=== PATIENT | male | born 1990 | race African-American/Black ===

== ENCOUNTER 2025-02-09 14:07 | Emergency (ER) | payer OTHER, SELFPAY ==
[2025-02-09 14:13] VITALS: BP 140/79; PULSE 58; TEMP 36.8; O2SAT 100; BMI 27.9
--- NOTE | 2025-02-09 14:27 | ED_ITS ---
HPI HPI - General Adult General Chief complaint: Headache Stated complaint: migraine Time Seen by Provider: 02/09/25 14:16 Source: patient Mode of arrival: walk-in Limitations: no limitations History of Present Illness HPI narrative: Patient reports right eye pain and right hemicranial pain starting about an hour ago. He had right eye pain 2 nights ago also. He wears contact lenses and remove the contact for his right eye then. He has a history of what he describes as migraine headaches that are always right hemicranial. Patient denies any infectious symptoms. Related Data Home Medications ?Medication ?Instructions ?Recorded ?Confirmed No Known Home Medications 02/09/25 02/09/25 Allergies Allergy/AdvReac Type Severity Reaction Status Date / Time No Known Drug Allergies Allergy Verified 02/09/25 14:12 Opioid HPI Opioid Management Most Recent Opioid Data: No Data to Display Review of Systems ROS Status of ROS 10 or more systems reviewed and unremark able except as noted in history and below PFSH PFSH Social History Little interest or pleasure in doing things: not at all Feeling down, depressed, or hopeless: not at all Exam Narrative Exam Narrative: Awake and alert, oriented x 3. Mildly photophobic. Pupils are equal and reactive. EOMs are full. There is perilimbal and conjunctival injection in the right eye. There is no facial asymmetry. Neck is supple. Patient moves all extremities actively. HEENT exam is otherwise normal to inspection. Lung sounds are clear to auscultation bilaterally with good air entry. Heart has regular rate and rhythm. Abdomen soft nontender. Patient's right eye was topically anesthetized with tetracaine eyedrops. After the instillation of fluorescein it was examined under the slit-lamp I do not see any uptake of fluorescein over the cornea but he does have more perilimbal flush suggestive of corneal irritation likely from his contact lens which could be part of a trigger for his headache. Constitutional Vital Signs, click to edit/add: Last Vital Signs Temp 98.2 F 02/09/25 14:13 Pulse 58 L 02/09/25 14:13 Resp 18 02/09/25 14:13 BP 140/79 02/09/25 14:13 Pulse Ox 100 02/09/25 14:13 Course Vital Signs Vital signs: Vital Signs Temperature 98.2 F 02/09/25 14:13 Pulse Rate 58 L 02/09/25 14:13 Respiratory Rate 18 02/09/25 14:13 Blood Pressure 140/79 02/09/25 14:13 Pulse Oximetry 100 02/09/25 14:13 Temperature 98.2 F 02/09/25 14:13 Pulse Rate 58 L 02/09/25 14:13 Respiratory Rate 18 02/09/25 14:13 Blood Pressure 140/79 02/09/25 14:13 Pulse Oximetry 100 02/09/25 14:13 Medical Decision Making MDM Narrative Medical decision making narrative: Patient is treated with Toradol 60 mg IM. His eye pain and headache have resolved. He is sent home with TobraDex eyedrops to be used 4 times a day for 2 days in the right eye and is not to wear his contact lens until he has been asymptomatic for at least 2 more days. He may take ibuprofen and Excedrin for headache as needed and is referred to outpatient primary care follow-up. He is to return for worsening symptoms. Discharge Plan Discharge Chief Complaint: Headache Clinical Impression: Corneal irritation of right eye Headache Qualifiers: Headache type: unspecified Headache chronicity pattern: acute headache Intractability: not intractable Qualified Code(s): R51.9 - Headache, unspecified Patient Disposition: Home, Self-Care Time of Disposition Decision: 15:56 Condition: Good Mode of Transportation: Private Vehicle Prescriptions / Home Meds: No Action No Known Home Medications Print Language: Telugu Instructions: Acute Headache (ED) Additional Instructions: Put 1 drop of TobraDex eye solution in your right eye 4 times a day for 2 days. After that if your symptoms are completely gone, do not wear your contacts for another 2 days. Ibuprofen and Excedrin for headache as needed. Return for worsening symptoms. Referrals: Physician,Non-Staff, MD [Primary Care Provider] - 1 week
[2025-02-09] MEDS: KETOROLAC TROMETHAMINE 60 MG/2 ML VIAL IM (14:53)
[2025-02-09] MEDS: FLUORESCEIN SODIUM 1 MG STRIP OP (14:57)
[2025-02-09] MEDS: TETRACAINE HCL 0.5% OP SOL 80 DROP/4 ML BOTTLE OP (14:57)
[2025-02-09] MEDS: TOBRAMYCIN/DEXAMETHASONE 0.3%/0.1% OP SUSP 50 DROP/2.5 ML BOTTLE 2 ML OP (16:00)
== END 2025-02-09 16:12 | disposition home or self-care (01) ==
PROVIDERS: Emergency Provider Emergency Medicine
DX: R51.9 Headache, unspecified (principal); H18.891 Other specified disorders of cornea, right eye
CPT/HCPCS: 96372; 99284; J1885

== ENCOUNTER 2025-02-10 19:38 | Emergency (ER) | payer OTHER, SELFPAY ==
[2025-02-10 19:46] VITALS: BP 152/85; PULSE 90; TEMP 36.7; O2SAT 100; BMI 27.9
--- NOTE | 2025-02-10 21:10 | ED_ITS ---
HPI HPI - General Adult General Chief complaint: Medical Clearance Stated complaint: std testing Time Seen by Provider: 02/10/25 20:03 Source: patient Limitations: no limitations History of Present Illness HPI narrative: 35-year-old male presents to the emergency department with concerns about STI. States he was rumor that one of his sexual partners tested positive for herpes. Patient denies any symptoms. Denies any abdominal pain, penile pain, discharge, rashes. Quality:?as above Severity:?Mild Timing:?as above Context: Normal setting and activity? Modifying factors:?None Associated symptoms: none Related Data Home Medications ?Medication ?Instructions ?Recorded ?Confirmed No Known Home Medications 02/09/25 02/10/25 Allergies Allergy/AdvReac Type Severity Reaction Status Date / Time No Known Drug Allergies Allergy Verified 02/10/25 19:51 Opioid HPI Opioid Management Most Recent Opioid Data: No Data to Display Review of Systems ROS Narrative CONST: Denies fever, chills HENT: Denies congestion, sore throat EYES: Denies eye redness, visual disturbance RESP: Denies cough, shortness of breath CV: Denies chest pain, palpitations GI: Denies abd pain, nausea, vomiting : Denies dysuria, flank pain MS: Denies back pain, myalgias SKIN: Denies color change, rash NEURO: Denies numbness, weakness PSYCHIATRIC: Denies confusion, agitation PFSH PFSH Social History Little interest or pleasure in doing things: not at all Feeling down, depressed, or hopeless: not at all Exam Narrative Exam Narrative: Vital signs reviewed Nurses notes noted CONST: Nontoxic, well appearing, well nourished, in no distress.? No diaphoresis.?? HENT: normocephalic, atraumatic, moist mucous membrane, no abnormalities of the nose noted, hearing normal CV: normal rate, regular rhythm, no murmur RESP: normal effort, speaking in complete sentences. Lung sounds clear and equal bilat.? No wheezes, rales, rhonchi GI: soft, no distension, nontender : no CVA tenderness MS: no edema, tenderness SKIN: no pallor NEURO: A&Ox 3, no focal findings PSYCH: normal mood, affect Constitutional Vital Signs, click to edit/add: Last Vital Signs Temp 98.1 F 02/10/25 19:46 Pulse 90 02/10/25 19:46 Resp 16 02/10/25 19:46 BP 152/85 H 02/10/25 19:46 Pulse Ox 100 02/10/25 19:46 O2 Del Method Room Air 02/10/25 19:46 Course Vital Signs Vital signs: Vital Signs Temperature 98.1 F 02/10/25 19:46 Pulse Rate 90 02/10/25 19:46 Respiratory Rate 16 02/10/25 19:46 Blood Pressure 152/85 H 02/10/25 19:46 Pulse Oximetry 100 02/10/25 19:46 Oxygen Delivery Method Room Air 02/10/25 19:46 Temperature 98.1 F 02/10/25 19:46 Pulse Rate 90 02/10/25 19:46 Respiratory Rate 16 02/10/25 19:46 Blood Pressure 152/85 H 02/10/25 19:46 Pulse Oximetry 100 02/10/25 19:46 Oxygen Delivery Method Room Air 02/10/25 19:46 Medical Decision Making MDM Narrative Medical decision making narrative: This is a pleasant 35-year-old male who presents to the emergency department for evaluation of STI evaluation. Has no symptoms, but is rumor that his sexual partner tested positive for herpes On arrival, afebrile, vitals stable Exam, nontoxic, well-appearing patient in no distress. Heart regular rate and rhythm. Lung sounds clear and equal bilaterally. Abdomen soft, nontender Favor STI concerned History and Record Review Additional records reviewed: No records Medications considered but not ordered: STI medications. Patient not having symptoms Disposition ? The patient was discharged. Plan: Patient will be discharged to home.? Condition at time of disposition: stable.? Advised to follow up with primary provider. Advised to return for any worsening and/or development of new, concerning signs or symptoms PLEASE NOTE: Portions of the medical record may have been produced using electronic [employer] and may contain errors with respect to translation of words which may not have been identified prior to finalization of the chart. Discharge Plan Discharge Chief Complaint: Medical Clearance Clinical Impression: Feared complaint without diagnosis, Encounter for assessment of STD exposure Patient Disposition: Home, Self-Care Time of Disposition Decision: 21:14 Condition: Good Mode of Transportation: Private Vehicle Prescriptions / Home Meds: No Action No Known Home Medications Print Language: Nicaraguan Instructions: Sexually Transmitted Diseases (ED), Safe Sex Practices (ED) Referrals: Physician,Non-Staff, MD [Primary Care Provider] - 1 week Discharge Date/Time: 02/10/25 21:48
[2025-02-13 06:08] LABS: Neisseria gonorrhoeae, NAA Negative (Negative); Trich vag by NAA Negative (Negative)
[2025-02-14 06:08] LABS: HSV-1 DNA Negative (Negative); HSV-2 DNA Negative (Negative)
== END 2025-02-10 21:48 | disposition home or self-care (01) ==
PROVIDERS: Physician Assistant; Emergency Provider Internal Medicine
DX: Z20.2 Contact with and (suspected) exposure to infections with a predominantly sexual mode of transmission (principal)
CPT/HCPCS: 36415; 86592; 86704; 86706; 86803; 87340; 87389; 87491; 87529; 87591; 87660; 99284

== ENCOUNTER 2025-02-11 12:32 | Emergency (ER) | payer OTHER, SELFPAY ==
[2025-02-11 12:41] VITALS: BP 132/80; PULSE 52; TEMP 36.9; O2SAT 100; BMI 31.1
--- OUTSIDE RECORDS SUMMARY | 2025-02-11 13:02 | XMS_ITS | CCD ---
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 Name Role Phone Unavailable Primary Care Provider ZONIA Jean-Baptiste Attending Unavailable AILEEN GIORDANO Attending Unavailable ZONIA TEJADA Attending Unavailable Medications Current Medications Medication Drug Class(es) Dates Sig (Normalized) Sig (Original) amoxicillin 875 mg oral tablet (3 sources) Penicillin-class Antibacterial take 1 tablet by mouth twice daily amoxicillin (AMOXIL) 875 MG tablet Take 875 mg by mouth 2 times daily 0 Active dicyclomine hydrochloride 10 mg oral capsule (2 sources) Anticholinergic Start: 10-05-2022 take 1 capsule by mouth four times daily dicyclomine (BENTYL) 10 MG capsule Take 1 capsule by mouth 4 times daily 20 capsule 0 10/05/2022 Active doxycycline hyclate 100 mg oral tablet (2 sources) Tetracycline-class Drug Start: 09-08-2022 End: 09-15-2022 take 1 tablet by mouth twice daily doxycycline hyclate (VIBRA-TABS) 100 MG tablet Take 1 tablet by mouth 2 times daily for 7 days 14 tablet 0 09/08/2022 09/15/2022 Active Start: 09-08-2022 End: 09-08-2022 doxycycline hyclate (VIBRAMY LUZMARIA) capsule 100 mg ibuprofen 800 mg oral tablet (2 sources) Nonsteroidal Anti-inflammatory Drug Start: 10-05-2022 take 1 tablet by mouth every six hours as needed for pain ibuprofen (IBU) 800 MG tablet Take 1 tablet by mouth every 6 hours as needed for Pain 21 tablet 0 10/05/2022 Active omeprazole 40 mg delayed release oral capsule (3 sources) Proton Pump Inhibitor Start: 11-16-2021 take 1 capsule by mouth once daily before breakfast omeprazole (PRILOSEC) 40 MG delayed release capsule Take 1 capsule by mouth every morning (before breakfast) Please take it daily otherwise won't work -and it works best if you take about 15 to 20 minutes before major meal. 30 capsule 0 11/16/2021 Active ondansetron 4 mg disintegrating oral tablet (3 sources) Serotonin-3 Receptor Antagonist Start: 11-16-2021 take 1 tablet by mouth every eight hours as needed for nausea ondansetron (ZOFRAN ODT) 4 MG disintegrating tablet Take 1 tablet by mouth every 8 hours as needed for Nausea or Vomiting 20 tablet 0 11/16/2021 Active Completed/Discontinued Medications Medication Drug Class(es) Dates Sig (Normalized) Sig (Original) cefTRIAXone 500 mg injection (1 source) Cephalosporin Antibacterial Start: 09-08-2022 End: 09-08-2022 cefTRIAXone (ROCEPHIN) injection 500 mg 1 ml ketorolac tromethamine 30 mg/ml cartridge (1 source) Nonsteroidal Anti-inflammatory Drug, Cyclooxygenase Inhibitor Start: 10-05-2022 End: 10-05-2022 ketorolac (TORADOL) injection 30 mg 50 ml sodium chloride 9 mg/ml injection (1 source) Start: 10-05-2022 End: 10-05-2022 0.9 % sodium chloride bolus Problems Active Problems Problem Classification Problem Date Documented Da te Episodic/Chronic Other gastrointestinal disorders (1 source) Diarrhea; Translations: [Diarrhea, unspecified] Episodic Other gastrointestinal disorders (1 source) Diarrhea, unspecified; Translations: [Diarrhea, unspecified] Onset: 01-06-2023 Episodic Other upper respiratory infections (1 source) Streptococcal pharyngitis; Translations: [Streptococcal pharyngitis] Onset: 10-14-2022 Episodic Past or Other Problems Problem Classification Problem Date Documented Da te Episodic/Chronic Disorders of teeth and jaw (1 source) Toothache Onset: 09-07-2022 Episodic Genitourinary symptoms and ill-defined conditions (2 sources) Discharge from penis; Translations: [Urethral discharge, unspecified] Onset: 09-08-2022 Episodic Viral infection (2 sources) Viral disease; Translations: [Viral infection, unspecified] Onset: 10-05-2022 Episodic Results Test Name Value Interpretation Reference Range Facil ity Strep Gr A Direct Agon 10-14 Strep Gr A Direct Ag Positive Abnormal NEG [facility] Comment on above: Result Comment: for Group A Streptococci Performed By: #### R GPA #### [facility] [address] [place], [place] [phone] Dough Raiser: Eber Beckford MD Source .THROAT SWAB Normal [facility] Comment on above: Performed By: #### R GPA #### [facility] [address] [place], [place] [phone] Dough Raiser: Eber Beckford MD Basic Metabolic Panelon 12-0 Anion gap [Moles/Vol] 8 mmol/L Low 9 - 17 mmol/L [facility] Calcium [Mass/Vol] 9.3 mg/dL 8.6 - 10. 4 mg/dL [facility] Chloride [Moles/Vol] 103 mmol/L 98 - 107 mmol/L [facility] CO2 [Moles/Vol] 25 mmol/L 20 - 31 mmol/L [facility] Creatinine [Mass/Vol] 1.01 mg/dL 0.70 - 1.20 mg/dL [facility] GFR/1.73 sq M.predicted MDRD (S/P/Bld) [Vol rate/Area] - PINF [facility] Comment on above: Effective Jul 31, 2022 These results are not intended for use in patients <18 years of age. eGFR results are calculated without a race factor using the 2020 CKD-EPI equation. Careful clinical correlation is recommended, particularly when comparing to results calculated using previous equations. The CKD-EPI equation is less accurate in patients with extremes of muscle mass, extra-renal metabolism of creatine, excessive creatine ingestion, or following therapy that affects renal tubular secretion. Glucose [Mass/Vol] 97 mg/dL 70 - 99 mg/dL [facility] Interpretation and review of laboratory results Abnormal [facility] Potassium [Moles/Vol] 3.7 mmol/L 3.7 - 5.3 mmol/L [facility] Sodium [Moles/Vol] 136 mmol/L 135 - 144 mmol/L [facility] Urea nitrogen (BldV) [Mass/Vol] 15 mg/dL 6 - 20 mg/dL [facility] Urea nitrogen/Creatinine (Bld) [Mass ratio] 15 9 - 20 [facility] Basic Metabolic Profon 10-05 Anion gap [Moles/Vol] 8 mmol/L Low 9-17 [facility] Comment on above: Performed By: #### B MP, CDP #### [facility] [address] [place], [place] [phone] Dough Raiser: Eber Beckford MD BUN/CRE Ratio 15 Normal 9-20 [facility] Comment on above: Performed By: #### B MP, CDP #### [facility] [address] [place], [place] [phone] Dough Raiser: Eber Beckford MD Calcium [Mass/Vol] 9.3 mg/dL Normal 8.6-10.4 [facility] Comment on above: Performed By: #### B PADILLA, CDP #### [facility] [address] [place], [place] [phone] Dough Raiser: Eber Beckford MD Chloride [Moles/Vol] 103 mmol/L Normal 98-107 [facility] Comment on above: Performed By: #### B PADILLA, CDP #### [facility] [address] [place], [place] [phone] Dough Raiser: Eber Beckford MD CO2 [Moles/Vol] 25 mmol/L Normal 20-31 [facility] Comment on above: Performed By: #### B PADILLA, CDP #### [facility] [address] [place], [place] [phone] Dough Raiser: Eber Beckford MD Creatinine [Mass/Vol] 1.01 mg/dL Normal 0.70-1.20 [facility] Comment on above: Performed By: #### B MP, CDP #### [facility] [address] [place] [address] Dough Raiser: Eber Beckford MD GFR/1.73 sq M.predicted among non-blacks MDRD (S/P/Bld) [Vol rate/Area] mL/min/{1.73_m2} Normal >60 [facility] Comment on above: Result Comment: Effective Jul 31, 2022 These results are not intended for use in patients <18 years of age. eGFR results are calculated without a race factor using the 2020 CKD-EPI equation. Careful clinical correlation is recommended, particularly when comparing to results calculated using previous equations. The CKD-EPI equation is less accurate in patients with extremes of muscle mass, extra-renal metabolism of creatine, excessive creatine ingestion, or following therapy that affects renal tubular secretion. Performed By: #### B PADILLA, CDP #### [facility] [address] [place] [address] [place] [place], [place] [phone] Dough Raiser: Eber Beckford MD Glucose [Mass/Vol] 97 mg/dL Normal 70-99 [facility] Comment on above: Performed By: #### B PADILLA, CDP #### [address] [place] [address] Dough Raiser: Eber Beckford MD Potassium [Moles/Vol] 3.7 mmol/L Normal 3.7-5.3 [facility] Comment on above: Performed By: #### B PADILLA, CDP #### [facility] [address] [place] [address] [place] [address] Dough Raiser: Eber Beckford MD Sodium [Moles/Vol] 136 mmol/L Normal 135-144 [facility] Comment on above: Performed By: #### B PADILLA, CDP #### [facility] [address] [place] [address] [place] [address] Dough Raiser: Eber Beckford MD Urea nitrogen [Mass/Vol] 15 mg/dL Normal 6-20 [facility] Comment on above: Performed By: #### B PADILLA, CDP #### [facility] [address] [place] [address] [place] [place], [place] [phone] Dough Raiser: Eber Beckford MD CBC with Auto Differentialon 10-05-2022 Absolute Eos # 0.06 [facility] Absolute Immature Granulocyte 0.09 [facility] Absolute Lymph # 1.38 [facility] Absolute [place] # 0.[address] [facility] Basophils (Bld) [#/Vol] 0.03 10*3/uL [facility] Basophils/100 WBC (Bld) 0 % 0 - 2 % [facility] Eosinophils/100 WBC (Bld) 1 % 1 - 4 % [facility] Hematocrit (Bld) [Volume fraction] 46.1 % 40.7 - 50.3 % [facility] Hemoglobin (Bld) [Mass/Vol] 14.9 g/dL 13.0 - 17.0 g/dL [facility] Immature granulocytes/100 WBC (Bld) 1 % High 0 [facility] Interpretation and review of laboratory results Abnormal [facility] Lymphocytes/100 WBC (Bld) 17 % Low 24 - 43 % [facility] MCH (RBC) [Entitic mass] 26.3 pg 25.2 - 33.5 pg [facility] MCHC (RBC) [Mass/Vol] 32.3 g/dL 28.4 - 34.8 g/dL [facility] MCV (RBC) [Entitic vol] 81.3 fL Low 82.6 - 102.9 fL [facility] Monocytes/100 WBC (Bld) 11 % 3 - 12 % [facility] NRBC Automated 0.0 0.0 per 100 WBC [facility] Platelet distribution width (Bld) [Ratio] 14.2 % 11.8 - 14.4 % [facility] Platelet mean volume (Bld) [Entitic vol] 10.1 fL 8.1 - 13.5 fL [facility] Platelets (Bld) [#/Vol] 314 10*3/uL [facility] RBC (Bld) [#/Vol] 5.67 10*6/uL 4.21 - 5.7 7 m/uL [facility] Segmented neutrophils/100 WBC (Bld) 70 % High 36 - 65 % [facility] Segs Absolute 5.52 [facility] WBC (Bld) [#/Vol] 8.0 10*3/uL [facility] CBC with Diffon 10-05-2022 Abs. Basophil 0.03 k/uL Normal 0.00-0.20 [facility] Comment on above: Performed By: #### B PADILLA, CDP #### [facility] [address] [place], [place] [phone] Dough Raiser: Eber Beckford MD Abs.Imm.Granulocyte 0.09 k/uL Normal 0.00-0.30 [facility] Comment on above: Performed By: #### B PADILLA, CDP #### [facility] [address] [place] [address] Dough Raiser: Eber Beckford MD Abs.Neutrophil (Seg) 5.52 k/uL Normal 1.50-8.10 [facility] Comment on above: Performed By: #### B PADILLA, CDP #### [facility] [address] [place], [place] [phone] Dough Raiser: Eber Beckford MD Basophils/100 WBC (Bld) 0 % Normal 0-2 [facility] Comment on above: Performed By: #### B PADILLA, CDP #### [address] [place], [place] [phone] Dough Raiser: Eber Beckford MD Eosinophils (Bld) [#/Vol] 0.06 10*3/uL Normal 0.00-0.44 [facility] Comment on above: Performed By: #### B PADILLA, CDP #### [facility] [address] [place], [place] [phone] Dough Raiser: Eber Beckford MD Eosinophils/100 WBC (Bld) 1 % Normal 1-4 [facility] Comment on above: Performed By: #### B PADILLA, CDP #### [facility] [address] [place], [place] [phone] Dough Raiser: Eber Beckford MD Erythrocyte distribution width (RBC) [Ratio] 14.2 % Normal 11.8-14.4 [facility] Comment on above: Performed By: #### B PADILLA, CDP #### [facility] [address] [place], [place] [phone] Dough Raiser: Eber Beckford MD Hematocrit (Bld) [Volume fraction] 46.1 % Normal 40.7-50.3 [facility] Comment on above: Performed By: #### B PADILLA, CDP #### [facility] [address] [place], [place] [phone] Dough Raiser: Eber Beckford MD Hemoglobin (Bld) [Mass/Vol] 14.9 g/dL Normal 13.0-17.0 [facility] Comment on above: Performed By: #### B PADILLA, CDP #### [address] [place], [place] [phone] Dough Raiser: Eber Beckford MD Immature granulocytes/100 WBC (Bld) 1 % High 0 [facility] Comment on above: Performed By: #### B PADILLA, CDP #### [address] [place], [place] [address]683 Dough Raiser: Eber Beckford MD Lymphocytes (Bld) [#/Vol] 1.38 10*3/uL Normal 1.10-3.70 [facility] Comment on above: Performed By: #### B PADILLA, CDP #### [facility] [address] [place] [address] [place] [address] Dough Raiser: Eber Beckford MD Lymphocytes/100 WBC (Bld) 17 % Low 24-43 [facility] Comment on above: Performed By: #### B PADILLA, CDP #### [address] [place], [place] [phone] Dough Raiser: Eber Beckford MD MCH (RBC) [Entitic mass] 26.3 pg Normal 25.2-33.5 [facility] Comment on above: Performed By: #### B PADILLA, CDP #### [facility] [address] [place], [place] [address] Dough Raiser: Eber Beckford MD MCHC (RBC) [Mass/Vol] 32.3 g/dL Normal 28.4-34.8 [facility] Comment on above: Performed By: #### B MP, CDP #### [facility] [address] [place], [place] [phone] Dough Raiser: Eber Beckford MD MCV (RBC) [Entitic vol] 81.3 fL Low 82.6-102.9 [facility] Comment on above: Performed By: #### B PADILLA, CDP #### [address] [place], [place] [address] Dough Raiser: Eber Beckford MD Monocytes (Bld) [#/Vol] 0.88 10*3/uL Normal 0.10-1.20 [facility] Comment on above: Performed By: #### B PADILLA, CDP #### [facility] [address] [place] [address] [place]. [place], [place] [phone] Dough Raiser: Eber Beckford MD Monocytes/100 WBC (Bld) 11 % Normal 3-12 [facility] Comment on above: Performed By: #### B MP, CDP #### [address] [place], [place] [phone] Dough Raiser: Eber Beckford MD Neutrophil (Seg) 70 % High 36-65 [facility] Comment on above: Performed By: #### B MP, CDP #### [facility] [address] [place], [place] [address]83 Dough Raiser: Eber Beckford MD NRBC Automated 0.0 per 100 WBC Normal 0.0 [facility] Comment on above: Performed By: #### B MP, CDP #### [facility] [address] [place], [place] [phone] Dough Raiser: Eber Beckford MD Platelet mean volume (Bld) [Entitic vol] 10.1 fL Normal 8.1-13.5 [facility] Comment on above: Performed By: #### B PADILLA, CDP #### [facility] [address] [place] [address] Dough Raiser: Eber Beckford MD Platelets (Bld) [#/Vol] 314 10*3/uL Normal 138-453 [facility] Comment on above: Performed By: #### B PADILLA, CDP #### [facility] [address] [place] [address] Dough Raiser: Eber Beckford MD RBC (Bld) [#/Vol] 5.67 10*6/uL Normal 4.21-5.77 [facility] Comment on above: Performed By: #### B PADILLA, CDP #### [facility] [address] [place] [address] Dough Raiser: Eber Beckford MD WBC (Bld) [#/Vol] 8.0 10*3/uL Normal 3.5-11.3 [facility] Comment on above: Performed By: #### B PADILLA, CDP #### [facility] [address] [place] [address] [place] [address] Dough Raiser: Eber Beckford MD COVID-19, Rapidon 10-05-2022 SARS-CoV-2 (COVID-19) RNA JOHANNE+probe Ql (Unsp spec) Not detected Not Detected [facility] Comment on above: Rapid NAAT: The specimen is NEGATIVE for SARS-CoV-2, the novel coronavirus associated with COVID-19. The ID NOW COVID-19 assay is designed to detect the virus that causes COVID-19 in patients with signs and symptoms of infection who are suspected of COVID-19. An individual without symptoms of COVID-19 and who is not shedding SARS-CoV-2 virus would expect to have a negative (not detected) result in this assay. Negative results should be treated as presumptive and, if inconsistent with clinical signs and symptoms or necessary for patient management, should be tested with an alternative molecular assay. Negative results do not preclude SARS-CoV-2 infection and should not be used as the sole basis for patient management decisions. Fact sheet for Healthcare Providers: https://www.fda.gov/media/617478/download Fact sheet for Patients: https://www.fda.gov/media/439925/download Methodology: Isothermal Nucleic Acid Amplification Specimen Description .NASOPHARYNGEAL SWAB [facility] Flu A/B Ag Detectionon 10-05 Flu A Ag Detection Negative Normal NEG [facility] Comment on above: Result Comment: for Influenza A Antigen Performed By: #### F LUABA #### [facility] [address] [place] [address] Dough Raiser: Eber Beckford MD Flu B Ag Detection Negative Normal [facility] Comment on above: Result Comment: for Influenza B Antigen. Performed By: #### F LUABA #### [facility] [address] [place] [address] Dough Raiser: Eber Beckford MD Rapid influenza A/B antigens on 10-05-2022 Flu A Antigen Negative NEGATIVE [facility] Comment on above: for Influenza A Anti gen Flu B Antigen Negative NEGATIVE [facility] Comment on above: for Influenza B Anti gen. [facility] [id number] 10-05-2022 SARS-CoV-2 (COVID-19) RNA JOHANNE+probe Ql (Unsp spec) Not detected Normal NOTDET [facility] Comment on above: Result Comment: Rapid NAAT: The specimen is NEGATIVE for SARS-CoV-2, the novel coronavirus associated with COVID-19. The ID NOW COVID-19 assay is designed to detect the virus that causes COVID-19 in patients with signs and symptoms of infection who are suspected of COVID-19. An individual without symptoms of COVID-19 and who is not shedding SARS-CoV-2 virus would expect to have a negative (not detected) result in this assay. Negative results should be treated as presumptive and, if inconsistent with clinical signs and symptoms or necessary for patient management, should be tested with an alternative molecular assay. Negative results do not preclude SARS-CoV-2 infection and should not be used as the sole basis for patient management decisions. Fact sheet for Healthcare Providers: https://www.fda.gov/media/098326/download Fact sheet for Patients: https://www.fda.gov/media/845995/download Methodology: Isothermal Nucleic Acid Amplification Performed By: #### C OVRB #### [facility] [address] [place] [address] Dough Raiser: Eber Beckford MD Chlamydia/GC DNA, Uron 09-11 Chlamydia Probe, Ur Negative Normal NEG [facility] Comment on above: Result Comment: CHLA MYDIA TRACHOMATIS DNA not detected by nucleic acid amplification. This test is intended for medical purposes only and is not valid for the evaluation of suspected sexual abuse or for other forensic purposes. In certain contexts, culture may be required to meet applicable laws and regulations for diagnosis of C. trachomatis and N. gonorrhoeae infections. Per 2014 CDC recommendations, this test does not include confirmation of positive results by an alternative nucleic acid target. Performed By: #### U CGP #### [address] [place], [place] [id number] Dough Raiser: Raymond Ho MD Gonorrhea Probe, Ur Negative Normal NEG [facility] Comment on above: Result Comment: NEIS SERIA GONORRHOEAE DNA not detected by nucleic acid amplification. This test is intended for medical purposes only and is not valid for the evaluation of suspected sexual abuse or for other forensic purposes. In certain contexts, culture may be required to meet applicable laws and regulations for diagnosis of C. trachomatis and N. gonorrhoeae infections. Per 2014 CDC recommendations, this test does not include confirmation of positive results by an alternative nucleic acid target. Performed By: #### U CGP #### [facility] [address] [place] [address] Dough Raiser: Raymond Ho MD Urinalysis w/ Microon 2021 Bacteria TRACE Abnormal NONE [facility] Comment on above: Performed By: #### U AMIC #### [facility] [address] [place] [address] Dough Raiser: Eber Beckford MD Bilirubin, SemiQt,Ur Negative Normal NEG [facility] Comment on above: Performed By: #### U AMIC #### [facility] [address] [place], [place] [address] Dough Raiser: Eber Beckford MD Blood, Urine Negative Normal NEG [facility] Comment on above: Performed By: #### U AMIC #### [facility] [address] [place], [place] [address] Dough Raiser: Eber Beckford MD Clarity (U) Clear Normal CLEAR [facility] Comment on above: Performed By: #### U AMIC #### [facility] [address] [place] [address] [place] [address] Dough Raiser: Eber Beckford MD Color (U) Yellow Normal YEL [facility] Comment on above: Performed By: #### U AMIC #### [facility] [address] [place] [address] [place] [address] Dough Raiser: Eber Beckford MD Epithelial cells LM Ql (Urine sed) 0 TO 2 Normal 0-5 [facility] Comment on above: Performed By: #### U AMIC #### [facility] [address] [place] [address] [place], [place] [address] Dough Raiser: Eber Beckford MD Glucose Ql (U) Negative Normal NEG [facility] Comment on above: Performed By: #### U AMIC #### [facility] [address] [place], [place] [address]83 Dough Raiser: Eber Beckford MD Ketones Ql (U) Negative Normal NEG [facility] Comment on above: Performed By: #### U AMIC #### [facility] [address] [place] [address] [place] [address] Dough Raiser: Eber Beckford MD Leukocyte esterase Test strip Ql (U) SMALL Abnormal NEG [facility] Comment on above: Performed By: #### U AMIC #### [facility] [address] [place], [place] [address] Dough Raiser: Eber Beckford MD Mucus Strands 1+ Abnormal NONE [facility] Comment on above: Performed By: #### U AMIC #### [facility] [address] [place], [place] [address] Dough Raiser: Eber Beckford MD Nitrite,Ur Negative Normal NEG [facility] Comment on above: Performed By: #### U AMIC #### [facility] [address] [place], [place] [address] Dough Raiser: Eber Beckford MD PH,Ur 6.0 Normal 5.0-9.0 [facility] Comment on above: Performed By: #### U AMIC #### [facility] [address] [place], [place] [address] Dough Raiser: Eber Beckford MD Protein Ql (U) Negative Normal NEG [facility] Comment on above: Performed By: #### U AMIC #### [facility] [address] [place], [place] [address] Dough Raiser: Eber Beckford MD Spec. [place],Ur >1.030 High 1.010-1.020 [facility] Comment on above: Performed By: #### U AMIC #### [facility] [address] [place], [place] [address] Dough Raiser: Eber Beckford MD Urine RBC's 0 TO 2 Normal 0-2 [facility] Comment on above: Performed By: #### U AMIC #### [facility] [address] [place], [place] [address] Dough Raiser: Eber Beckford MD Urine WBC's 10 TO 20 Normal 0-5 [facility] Comment on above: Performed By: #### U AMIC #### [facility] [address] [place] [address] Dough Raiser: Eber Beckford MD Urobilinogen,Ur Normal Normal NORM [facility] Comment on above: Performed By: #### U AMI #### [facility] [address] [place] [address] Dough Raiser: Eber Beckford MD Urinalysis with Microscopico n 09-08-2022 Bacteria, UA TRACE Abnormal None [facility] Bilirubin Urine Negative NEGATIVE [facility] Color, UA Yellow Yellow [facility] Epithelial Cells UA 0 TO 2 [facility] Glucose, Ur Negative NEGATIVE [facility] Interpretation and review of laboratory results Abnormal [facility] Ketones Ql (U) Negative NEGATIVE [facility] Leukocyte esterase Test strip Ql (U) SMALL Abnormal NEGATIVE [facility] Mucus, UA 1+ Abnormal None [facility] Nitrite, Urine Negative NEGATIVE [facility] pH, UA 6.0 5.0 - 9.0 [facility] Protein, UA Negative NEGATIVE [facility] RBC, UA 0 TO 2 [facility] Specific [place], UA High 1.010 - 1.[address] [facility] Turbidity UA Clear Clear [facility] Urine Hgb Negative NEGATIVE [facility] Urobilinogen, Urine Normal Normal [facility] WBC, UA 10 TO 20 [facility] Vital Signs Date Time Vital Sign Value Performing Clinician Amie gale 01-06-2023 13:25-0500 Body temperature 98.01 [degF] Zonia Tejada DO Work Phone: [facility] 01-06-2023 13:25-0500 Diastolic blood pressure 79 mm[Hg] Zonia Tejada DO Work Phone: [facility] 01-06-2023 13:25-0500 Heart rate 72 /min Zonia Tejada DO Work Phone: [facility] 01-06-2023 13:25-0500 Respiratory rate 18 /min Zonia Tejada DO Work Phone: [facility] [employer] 01-06-2023 13:25-0500 SaO2% (BldA) [Mass fraction] 100 % Zonia Tejada DO Work Phone: [facility] [employer] 01-06-2023 13:25-0500 Systolic blood pressure 133 mm[Hg] Zonia Tejada DO Work Phone: [facility] [employer] 10-05-2022 20:02-0500 Heart rate 75 /min [facility] [employer] 10-05-2022 20:02-0500 Respiratory rate 16 /min [facility] [employer] 10-05-2022 16:49-0500 Diastolic blood pressure 82 mm[Hg] [facility] [employer] 10-05-2022 16:49-0500 Systolic blood pressure 125 mm[Hg] [facility] [employer] 10-05-2022 16:48-0500 Body temperature 97.9 [degF] [facility] [employer] 10-05-2022 16:48-0500 SaO2% (BldA) [Mass fraction] 98 % [facility] [employer] 09-08-2022 10:24-0500 Diastolic blood pressure 71 mm[Hg] Aileen Ellis DO Work Phone: [facility] [employer] 09-08-2022 10:24-0500 Systolic blood pressure 129 mm[Hg] Aileen Giordano DO Work Phone: [facility] [employer] 09-08-2022 10:22-0500 Body temperature 97.81 [degF] Aileen Ellis DO Work Phone: [facility] [employer] 09-08-2022 10:22-0500 Heart rate 84 /min Aileen Giordano DO Work Phone: [facility] [employer] 09-08-2022 10:22-0500 Respiratory rate 18 /min Aileen Giordano DO Work Phone: [facility] [employer] 09-08-2022 10:22-0500 SaO2% (BldA) [Mass fraction] 94 % Aileen Giordano DO Work Phone: [facility] Encounters Encounter Date Encounter Type Care Provider Facility Start: 01-06-2023 End: 01-06-2023 Emergency department patient visit [facility] Start: 01-06-2023 End: 01-06-2023 Emergency department patient visit [facility] DO Work Phone: [facility] ED Comment on above: Diarrhea, unspecifie d type (Primary Dx) Start: 10-14-2022 End: 10-14-2022 Emergency department patient visit [facility] Start: 10-05-2022 End: 10-05-2022 Emergency department patient visit [facility] Start: 10-05-2022 End: 10-05-2022 Emergency department patient visit [facility] ED Comment on above: Viral illness (Prima ry Dx) Start: 09-08-2022 End: 09-08-2022 Emergency department patient visit AILEEN Whitfield [facility] Start: 09-08-2022 End: 09-08-2022 Emergency department patient visit Aileen Giordano DO Work Phone: [facility] ED Comment on above: Penile discharge (Pr imary Dx) Start: 09-07-2022 End: 09-07-2022 Emergency department patient visit [facility] Procedures Date Procedure Procedure Detail Performing Clinician Start: 10-05-2022 Basic metabolic pane l calcium total Trent A George MENDOZA Work Phone: Start: 10-05-2022 COVID-19, RAPID Lovely kevin Giordano DO Work Phone: Start: 10-05-2022 Iaadiadoo influenza Chr guille Giordano DO Work Phone: Start: 09-08-2022 Urnls dip stick/tabl et reagent auto microscopy Aileen Giordano DO Work Phone: Plan of Treatment Date Care Activity Detail Author Start: 05-29-2022 Influenza vaccination Flu vaccine (# 1) [employer] Start: 2010 DTaP/Tdap/Td vaccine (1 - Tdap) DTaP/Tdap/Td vaccine (1 - Tdap) [employer] Start: 1991 COVID-19 Vaccine (#1) COVID-19 Vacci ne (#1) [employer] End: 09-08-2022 C.trachomatis N.gonorrhoeae DNA, Urine [facility] Phone: Comment on above: One Time for 1 Occur rences starting 09/08/2022 until 09/08/2022 Payers Date Payer Category Payer Private Health Insurance [id number] 1990 Unknown [id number] 1991 Unknown [id number] 1991 Unknown [id number] Social History Date Type Detail Facility Start: 11-16-2021 [facility] [employer] History of tobacco use Cigarette Smoker [facility] [employer] Phone: Start: 11-16-2021 End: 10-05-2022 Cigarettes smoked current (pack per day) - Reported 0.5 [facility] Phone: Start: 11-16-2021 End: 10-05-2022 Tobacco use and exposure Smokeless tobacco non-user [facility] Phone: Start: 1990 Sex Assigned At Not on file [facility] [employer] Phone: Start: 08-29-2022 End: 01-06-2023 Exposure to SARS-CoV-2 (event) Not sure [facility] Start: 10-05-2022 Tobacco smoking stat us NHIS Ex-smoker [facility] History of tobacco use Current smoker [facility] [employer] Work Phone: Hospital Discharge instructions 01-06-2023 Discharge InstructionsAttachments Note Date & Type Note Facility 01-06-2023 Hospital Discharg e instructions Zonia Tejada DO - 01/06/2023 1:41 PM EST Recommend staying on a liquid diet today including water and Gatorade. You can try to eat some bananas to help with the diarrhea as well. Avoid any other kind of solid foods until diarrhea is completely resolved. If you have any concerns or questions regarding your care today, please discuss with your nurse or physician prior to leaving the emergency department. Thank you for allowing us to take care of you at [facility]. In the next few days you may receive a survey by mail or e-mail asking about the care you received during this visit. Please complete this if you are able, as this feedback helps us provide the best care possible. The following attachments cannot be sent through Care Everywhere.Diarrhea (Tunisian)documented in this encounter [facility] [employer] Work Phone: Hospital Discharge instructions 09-08-2022 Discharge InstructionsAttachments Note Date & Type Note Facility 09-08-2022 Hospital Discharg e instructions Aileen Giordano DO - 09/08/2022 11:01 AM EST Follow up results on mychart, Take antibiotics until completed, return to Er for worsening symptoms. The following attachments cannot be sent through Care Everywhere.STI (Tunisian)documented in this encounter [facility] [employer] Phone: Evaluation note Note Date & Type Note Facility Evaluation note Diagnosis Penile discharge- Primary Urethral discharge documented in this encounter [facility]: Evaluation note Note Date & Type Note Facility Evaluation note Diagnosis Viral illness- Primary Unspecified viral infection, in conditions classified elsewhere and of unspecified site documented in this encounter [facility]: Evaluation note Note Date & Type Note Facility Evaluation note Diagnosis Diarrhea, unspecified type- Primary documented in this encounter [facility]: Hospital Discharge instructions Attachments Note Date & Type Note Facility Hospital Discharge instructions The following attachments cannot be sent through Care Everywhere.Viral Infections (Tunisian)documented in this encounter [facility]: Summary Purpose Family History No Family History Records Found Advance Directives No Advanced Directives Records Found Additional Source Comments Reason for Visit (unrecogniz ed section and content) Reason Comments Dysuria Painful urination, w jonelle discharge, currently on Amoxil for dental infection Reason Comments Illness Patient complains of illness for past few days. Cough, body aches, diarrhea. Reason Comments Diarrhea Diarrhea since yeste rday Letter for School/Work Ordered Prescriptions (unrec ognized section and content) Prescription Sig Dispensed Refills Start Date End Da te doxycycline hyclate (VIBRA-TABS) 100 MG tablet Take 1 tablet by mouth 2 times daily for 7 days 14 tablet 0 09/08/2022 09/15/2022 Prescription Sig Dispensed Refills Start Date End Da te ibuprofen (IBU) 800 MG tablet Take 1 tablet by mouth every 6 hours as needed for Pain 21 tablet 0 10/05/2022 dicyclomine (BENTYL) 10 MG capsule Take 1 capsule by mouth 4 times daily 20 capsule 0 10/05/2022 Scheduled Active and Recently Administ ered Medications (unrecognized section and content) Medication Order 09/06/2022 09/07/2022 09/08/2022 cefTRIAXone (ROCEPHIN) injection 500 mg (COMPLETED) 500 mg, IntraMUSCular, ONCE, 1 dose, On Sun09/08/22 at 1115, Antimicrobial Indications: STD infection 1127 (Given - Provid er: Elise Paulino RN) doxycycline hyclate (VIBRAMYCIN) capsule 100 mg (COMPLETED) 100 mg, Oral, ONCE, 1 dose, On Sun09/08/22 at 1115, Antimicrobial Indications: STD infection 1126 (Given - Provid er: Elise Paulino RN) No Frequency Medication Order 09/06/2022 09/07/2022 09/08/2022 sterile water injection 1 dose, Starting on Sun09/08/22 at 1123, Until Sun09/08/22 at 2329, Elise Paulino: cabinet override, Elise Paulino: cabinet override 1130 (Due) Scheduled Medication Order 10/03/2022 10/04/2022 10/05/2022 0.9 % sodium chloride bolus (COMPLETED) 1,000 mL, IntraVENous, at 1,000 mL/hr, Administer over 1 Hours, ONCE, On Rose 10/05/22 at 1900, For 1 dose 1908 (New Bag - Prov ider: Eber Thrasher RN)1950 (Stopped - Provider: Marlene Ambrosio RN) ketorolac (TORADOL) injection 30 mg (COMPLETED) Ketorolac is contraindicated in patients with advanced renal impairment and in patients at risk of renal failure due to volume depletion. For 65 years of age and older OR weight less than 50 kg, use 15 mg IV every 6 hours; MAX dose: 60 mg/day. Dose greater than 30 mg must be administered via intramuscular route. Do not administer for more than 5 days., 30 mg, IntraVENous, ONCE, 1 dose, On Rose 10/05/22 at 1900 1908 (Given - Provid er: Eber Thrasher RN) (unrecognized sect ion and content) No Status Records Found INFORMATION SOURCE (unrecogn ized section and content) DATE CREATED AUTHOR 01/07/2023 Sarah zazueta FOR RECORDS PERTAINING TO PATIENTS WHO ARE OR HAVE BEEN ENROLLED IN A CHEMICAL DEPENDENCY/SUBSTANCEABUSE PROGRAM, SOME INFORMATION MAY BE OMITTED. This clinical summary was aggregated from multiple sources. Caution should be exercised in using it in the provision of clinical care. This summary normalizes information from multiple sources, and as a consequence, information in this document may materially change the coding, format and clinical context of patient data. In addition, data may be omitted in some cases. CLINICAL DECISIONS SHOULD BE BASED ON THE PRIMARY CLINICAL RECORDS. [employer] [facility]. provides no warranty or guarantee of the accuracy or completeness of information in this document.
[2025-02-11 13:14] LABS: Basophils Absolute Auto 0.1 10^3/uL (0.0-0.1); Basophils Percent Auto 1.1 % (0.2-2.0); Eosinophils Absolute Auto 0.1 10^3/uL (0.0-0.7); Eosinophils Percent Auto 1.1 % (0.9-7.0); Hematocrit 40.6 % (42.0-54.0); Immature Granulocytes Abs Auto 0.01 10^3/uL (0.00-0.03); Immature Granulocytes Pct Auto 0.2 % (0.0-0.5); Lymphocytes Percent Auto 35.9 % (20.5-60.0); Mean Corpuscular Volume 81.2 fL (80.0-94.0); Mean Platelet Volume 10.6 fL (9.5-13.5); Monocytes Absolute Auto 0.4 10^3/uL (0.3-0.8); Monocytes Percent Auto 7.1 % (1.7-12.0); Neutrophils Percent Auto 54.6 % (43.0-75.0); Platelet Count 246 10^3/uL (150-450); Red Cell Distribution Width 14.5 % (11.0-15.0); White Blood Count 5.5 10^3/uL (4.0-11.0)
--- NOTE | 2025-02-11 13:14 | ED_ITS ---
HPI HPI - General Adult General Chief complaint: Headache Stated complaint: migraine/eye pain Time Seen by Provider: 02/11/25 12:35 Source: patient Mode of arrival: walk-in Limitations: no limitations History of Present Illness HPI narrative: Patient presents to ED complaining of an ocular headache. Patient states he has a migraine headache around the right eye. He said he was recently in the ER for similar situation. He said he does smoke but he tried to quit for about 2 days. He said the headache came on today and he took a couple of Excedrin and it did not seem to help so he came in for evaluation. No vision changes. He said anytime these headaches come on they seem to be around the right eye and radiating back towards the right bapt[place]. I asked him if anybody has diagnosed him with cluster headaches or ocular migraines and he said no formal diagnosis. Patient is alert and oriented in no acute distress. No visual changes no numbness or tingling or weakness in his extremities. He said the light irritates his eye the most. . Related Data Home Medications ?Medication ?Instructions ?Recorded ?Confirmed No Known Home Medications 02/09/25 02/10/25 Allergies Allergy/AdvReac Type Severity Reaction Status Date / Time No Known Drug Allergies Allergy Verified 02/10/25 19:51 Opioid HPI Opioid Management Most Recent Opioid Data: Last Pain Scale 0 02/11/25 13:15 02/11/25 Last MAR Pain Assessment 02/11/25 13:15 Review of Systems ROS Status of ROS 10 or more systems reviewed and unremark able except as noted in history and below PFSH PFS Social History Little interest or pleasure in doing things: not at all Feeling down, depressed, or hopeless: not at all Exam Narrative Exam Narrative: Time Seen: [] Vital Signs: [Per nurse's notes.] General: [Alert] Skin: [Warm, dry, no rash.] Head: [Normocephalic, atraumatic.] Neck: [Supple, trachea midline.] Eye: [Pupils are equal, round and reactive to light, extraocular movements are intact, normal conjunctiva.] Right eye is sensitive to light. Ears, nose, mouth and throat: oral mucosa moist. Cardiovascular: [Regular rate and rhythm, no murmur.] Respiratory: [Lungs are clear to auscultation, respirations are non-labored, breath sounds are equal.] Chest wall: [No tenderness, no deformity.] Gastrointestinal: [Soft, nontender, non distended, normal bowel sounds.] MSK: 5 out of 5 muscle strength x 4 extremities no calf pain or edema Lymphatics: [No lymphadenopathy.] Psychiatric: [Cooperative, appropriate mood & affect.] Neurological: [Alert and oriented to person, place, time, and situation, no focal neurological deficit observed.] Constitutional Vital Signs, click to edit/add: Last Vital Signs Temp 98.5 F 02/11/25 12:41 Pulse 52 L 02/11/25 12:41 Resp 18 02/11/25 12:41 BP 132/80 02/11/25 12:41 Pulse Ox 100 02/11/25 12:41 O2 Del Method Room Air 02/11/25 12:41 Course Vital Signs Vital signs: Vital Signs Temperature 98.5 F 02/11/25 12:41 Pulse Rate 52 L 02/11/25 12:41 Respiratory Rate 18 02/11/25 12:41 Blood Pressure 132/80 02/11/25 12:41 Pulse Oximetry 100 02/11/25 12:41 Oxygen Delivery Method Room Air 02/11/25 12:41 Temperature 98.5 F 02/11/25 12:41 Pulse Rate 52 L 02/11/25 12:41 Respiratory Rate 18 02/11/25 12:41 Blood Pressure 132/80 02/11/25 12:41 Pulse Oximetry 100 02/11/25 12:41 Oxygen Delivery Method Room Air 02/11/25 12:41 Medical Decision Making MDM Narrative Medical decision making narrative: The nurse said when she went in to give him the medication he said his headache was already subsiding prior to being medicated. I DC'd the Benadryl and Reglan and just gave him some Toradol. He said he was feeling better after the fluids. I told him to follow-up with a family doctor to get better treatment for these headaches. I did offer him a work note but he said he would prefer to go to work tonight. 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 I did certified travel counselor him on smoking cessation. Return to ED if worsening symptoms otherwise follow-up outpatient. Patient is comfortable with care plan for home. Differential Diagnosis Differential Diagnosis: Migraine, cluster headache Lab Data Lab results reviewed: Yes I reviewed the patient's lab results Labs: Lab Results 02/11/25 Range/Units 13:05 WBC 5.5 (4.0-11.0) 10^3/uL RBC 5.00 (4.70-6.10) 10^6/uL Hgb 13.0 L (14.0-18.0) g/dL Hct 40.6 L (42.0-54.0) % MCV 81.2 (80.0-94.0) fL MCH 26.0 (25.9-34.0) pg MCHC 32.0 (29.9-35.2) g/dL RDW 14.5 (11.0-15.0) % Plt Count 246 (150-450) 10^3/uL MPV 10.6 (9.5-13.5) fL Neut % (Auto) 54.6 (43.0-75.0) % Lymph % (Auto) 35.9 (20.5-60.0) % Cannon % (Auto) 7.1 (1.7-12.0) % Eos % (Auto) 1.1 (0.9-7.0) % Baso % (Auto) 1.1 (0.2-2.0) % Neut # (Auto) 3.0 (1.4-6.5) 10^3/uL Lymph # (Auto) 2.0 (1.2-3.8) 10^3/uL Cannon # (Auto) 0.4 (0.3-0.8) 10^3/uL Eos # (Auto) 0.1 (0.0-0.7) 10^3/uL Baso # (Auto) 0.1 (0.0-0.1) 10^3/uL Abs Immat Gran (auto) 0.01 (0.00-0.03) 10^3/uL Imm/Tot Granulo (auto) 0.2 (0.0-0.5) % Smoking Cessation Time spent discussing smoking cessation with patient: 3 to 10 minutes Patient Acknowledges Need for Cessation: Yes Discharge Plan Discharge Chief Complaint: Headache Clinical Impression: Headache Qualifiers: Headache type: unspecified Headache chronicity pattern: acute headache Intractability: not intractable Qualified Code(s): R51.9 - Headache, unspecified Patient Disposition: Home, Self-Care Time of Disposition Decision: 13:24 Condition: Good Mode of Transportation: Private Vehicle Prescriptions / Home Meds: No Action No Known Home Medications Print Language: Jamaican Instructions: Cluster Headache (ED), Acute Headache (ED) Referrals: Physician,Non-Staff, MD [Primary Care Provider] - 1 week
[2025-02-11] MEDS: 0.9 % SODIUM CHLORIDE 1,000 ML 1000 ML IV (13:15)
[2025-02-11] MEDS: KETOROLAC TROMETHAMINE 30 MG/ML VIAL IVP (13:15)
[2025-02-11 13:33] LABS: Alanine Aminotransferase 30 U/L (16-63); Albumin Globulin Ratio 1.2; Albumin Level 3.6 g/dL (3.4-5.0); Alkaline Phosphatase 83 U/L (46-116); Anion Gap 8.1; Aspartate Amino Transferase 16 U/L (15-37); BUN Creatinine Ratio 10.8; Bilirubin Total 0.5 mg/dL (0.2-1.0); Calcium 8.8 mg/dL (8.5-10.1); Carbon Dioxide 31.6 mmol/L (21.0-32.0); Chloride 106 mmol/L (98-107); Estimated GFR (African America >60 (>=60 mL/min/1.73m^2); Estimated GFR (Non-African Ame >60 (>=60 mL/min/1.73m^2); Glucose 110 mg/dL (74-106); Potassium 3.7 mmol/L (3.5-5.1); Sodium 142 mmol/L (136-145); Total Protein 6.6 g/dL (6.4-8.2)
== END 2025-02-11 14:07 | disposition home or self-care (01) ==
PROVIDERS: Emergency Provider Emergency Medicine
DX: R51.9 Headache, unspecified (principal)
CPT/HCPCS: 36415; 80053; 85025; 96374; 99284; J1885

== ENCOUNTER 2025-02-14 16:18 | Emergency (ER) | payer OTHER, SELFPAY ==
[2025-02-14 16:22] VITALS: BP 105/62; PULSE 60; TEMP 36.8; O2SAT 98; BMI 30.7
--- OUTSIDE RECORDS SUMMARY | 2025-02-14 16:24 | XMS_ITS | CCD ---
Author Organization [facility] Inform ion Partnership [facility] Care Team Providers Care Formula Mixer Name Role Phone Unavailable Primary Care Provider [...] Gr A Direct Ag Positive Abnormal NEG [facility] Comment on above: Result Comment: for Group A Streptococci Performed By: #### R GPA #### [facility] [address] [place], [place] [id number] Senior Java Data Architect: Eber Beckford MD Source .THROAT SWAB Normal [facility] Comment on above: Performed By: #### R GPA #### [facility] [address] [place], [place] [id number] Senior Java Data Architect: Eber Beckford MD Basic Metabolic Panelon 12-0 Anion gap [Moles/Vol] 8 mmol/L Low 9 - 17 mmol/L [facility] Calcium [Mass/Vol] 9.3 mg/dL 8.6 - 10. 4 mg/dL [facility] Chloride [Moles/Vol] 103 mmol/L 98 - 107 mmol/L [facility] CO2 [Moles/Vol] 25 mmol/L 20 - 31 mmol/L [facility] Creatinine [Mass/Vol] 1.01 mg/dL 0.70 - 1.20 mg/dL [facility] GFR/1.73 sq M.predicted MDRD (S/P/Bld) [Vol rate/Area] - PINF [facility] Comment on above: Effective Jul 31, 2022 [...] [Mass/Vol] 97 mg/dL 70 - 99 mg/dL [facility] Interpretation and review of laboratory results Abnormal [facility] Potassium [Moles/Vol] 3.7 mmol/L 3.7 - 5.3 mmol/L [facility] Sodium [Moles/Vol] 136 mmol/L 135 - 144 mmol/L [facility] Urea nitrogen (BldV) [Mass/Vol] 15 mg/dL 6 - 20 mg/dL [facility] Urea nitrogen/Creatinine (Bld) [Mass ratio] 15 9 - 20 [facility] Basic Metabolic Profon 10-05 Anion gap [Moles/Vol] 8 mmol/L Low 9-17 [facility] Comment on above: Performed By: #### B MP, CDP #### [facility] [address] [place], [place] [id number] Senior Java Data Architect: Eber Beckford MD BUN/CRE Ratio 15 Normal 9-20 [facility] Comment on above: Performed By: #### B MP, CDP #### [facility] [address] [place], [place] 19[address]83 Senior Java Data Architect: Eber Beckford MD Calcium [Mass/Vol] 9.3 mg/dL Normal 8.6-10.4 [facility] Comment on above: Performed By: #### B PADILLA, CDP #### [facility] [address] [place], [place] 9[address]83 Senior Java Data Architect: Eber Beckford MD Chloride [Moles/Vol] 103 mmol/L Normal 98-107 [facility] Comment on above: Performed By: #### B PADILLA, CDP #### [facility] [address] [place], [place] [phone] Senior Java Data Architect: Eber Beckford MD CO2 [Moles/Vol] 25 mmol/L Normal 20-31 [facility] Comment on above: Performed By: #### B PADILLA, CDP #### [facility] [address] [place], [place] 6983483 Senior Java Data Architect: Eber Beckford MD Creatinine [Mass/Vol] 1.01 mg/dL Normal 0.70-1.20 [facility] Comment on above: Performed By: #### B MP, CDP #### [facility] [address] [place] [address] Senior Java Data Architect: Eber Beckford MD GFR/1.73 sq M.predicted among non-blacks MDRD (S/P/Bld) [Vol rate/Area] mL/min/{1.73_m2} Normal >60 [facility] Comment on above: Result Comment: Effective [...] Performed By: #### B PADILLA, CDP #### [facility] [address] [place] [address] [place] [place], [place] [phone] Senior Java Data Architect: Eber Beckford MD Glucose [Mass/Vol] 97 mg/dL Normal 70-99 [facility] Comment on above: Performed By: #### B PADILLA, CDP #### [address] [place] [address] Senior Java Data Architect: Eber Beckford MD Potassium [Moles/Vol] 3.7 mmol/L Normal 3.7-5.3 [facility] Comment on above: Performed By: #### B PADILLA, CDP #### [facility] [address] [place] [address] [place] [address] Senior Java Data Architect: Eber Beckford MD Sodium [Moles/Vol] 136 mmol/L Normal 135-144 [facility] Comment on above: Performed By: #### B PADILLA, CDP #### [facility] [address] [place] [address] [place] [address] Senior Java Data Architect: Eber Beckford MD Urea nitrogen [Mass/Vol] 15 mg/dL Normal 6-20 [facility] Comment on above: Performed By: #### B PADILLA, CDP #### [facility] [address] [place] [address] [place], [place] [phone] Senior Java Data Architect: Eber Beckford MD CBC with Auto Differentialon 10-05-2022 Absolute Eos # 0.[address] [facility] Absolute Immature Granulocyte 0.[address] [facility] Absolute Lymph # 1.[address] [facility] Absolute [place] # 0.88 [facility] Basophils (Bld) [#/Vol] 0.03 10*3/uL [facility] Basophils/100 WBC (Bld) 0 % 0 - 2 % [facility] Eosinophils/100 WBC (Bld) 1 % 1 - 4 % [facility] Hematocrit (Bld) [Volume fraction] 46.1 % 40.7 - 50.3 % [facility] Hemoglobin (Bld) [Mass/Vol] 14.9 g/dL 13.0 - 17.0 g/dL [facility] Immature granulocytes/100 WBC (Bld) 1 % High 0 [facility] Interpretation and review of laboratory results Abnormal [facility] Lymphocytes/100 WBC (Bld) 17 % Low 24 - 43 % [facility] MCH (RBC) [Entitic mass] 26.3 pg 25.2 - 33.5 pg [facility] MCHC (RBC) [Mass/Vol] 32.3 g/dL 28.4 - 34.8 g/dL [facility] MCV (RBC) [Entitic vol] 81.3 fL Low 82.6 - 102.9 fL [facility] Monocytes/100 WBC (Bld) 11 % 3 - 12 % [facility] NRBC Automated 0.0 0.0 per 100 WBC [facility] Platelet distribution width (Bld) [Ratio] 14.2 % 11.8 - 14.4 % [facility] Platelet mean volume (Bld) [Entitic vol] 10.1 fL 8.1 - 13.5 fL [facility] Platelets (Bld) [#/Vol] 314 10*3/uL [facility] RBC (Bld) [#/Vol] 5.67 10*6/uL 4.21 - 5.7 7 m/uL [facility] Segmented neutrophils/100 WBC (Bld) 70 % High 36 - 65 % [facility] Segs Absolute 5.52 [facility] WBC (Bld) [#/Vol] 8.0 10*3/uL [facility] CBC with Diffon 10-05-2022 Abs. Basophil 0.03 k/uL Normal 0.00-0.20 [facility] Comment on above: Performed By: #### B PADILLA, CDP #### [facility] [address] [place], [place] [phone] Senior Java Data Architect: Eber Beckford MD Abs.Imm.Granulocyte 0.09 k/uL Normal 0.00-0.30 [facility] Comment on above: Performed By: #### B PADILLA, CDP #### [facility] [address] [place] [address] Senior Java Data Architect: Eber Beckford MD Abs.Neutrophil (Seg) 5.52 k/uL Normal 1.50-8.10 [facility] Comment on above: Performed By: #### B PADILLA, CDP #### [facility] [address] [place], [place] [phone] Senior Java Data Architect: Eber Beckford MD Basophils/100 WBC (Bld) 0 % Normal 0-2 [facility] Comment on above: Performed By: #### B PADILLA, CDP #### [address] [place], [place] [phone] Senior Java Data Architect: Eber Beckford MD Eosinophils (Bld) [#/Vol] 0.06 10*3/uL Normal 0.00-0.44 [facility] Comment on above: Performed By: #### B PADILLA, CDP #### [facility] [address] [place], [place] [phone] Senior Java Data Architect: Eber Beckford MD Eosinophils/100 WBC (Bld) 1 % Normal 1-4 [facility] Comment on above: Performed By: #### B PADILLA, CDP #### [facility] [address] [place], [place] [phone] Senior Java Data Architect: Eber Beckford MD Erythrocyte distribution width (RBC) [Ratio] 14.2 % Normal 11.8-14.4 [facility] Comment on above: Performed By: #### B PADILLA, CDP #### [facility] [address] [place], [place] [phone] Senior Java Data Architect: Eber Beckford MD Hematocrit (Bld) [Volume fraction] 46.1 % Normal 40.7-50.3 [facility] Comment on above: Performed By: #### B PADILLA, CDP #### [facility] [address] [place], [place] [phone] Senior Java Data Architect: Eber Beckford MD Hemoglobin (Bld) [Mass/Vol] 14.9 g/dL Normal 13.0-17.0 [facility] Comment on above: Performed By: #### B PADILLA, CDP #### [address] [place], [place] 1050483 Senior Java Data Architect: Eber Beckford MD Immature granulocytes/100 WBC (Bld) 1 % High 0 [facility] Comment on above: Performed By: #### B PADILLA, CDP #### [address] [place], [place] [phone] Senior Java Data Architect: Eber Beckford MD Lymphocytes (Bld) [#/Vol] 1.38 10*3/uL Normal 1.10-3.70 [facility] Comment on above: Performed By: #### B PADILLA, CDP #### [facility] [address] [place] [address] [place] [address] Senior Java Data Architect: Eber Beckford MD Lymphocytes/100 WBC (Bld) 17 % Low 24-43 [facility] Comment on above: Performed By: #### B PADILLA, CDP #### [address] [place], [place] [phone] Senior Java Data Architect: Eber Beckford MD MCH (RBC) [Entitic mass] 26.3 pg Normal 25.2-33.5 [facility] Comment on above: Performed By: #### B PADILLA, CDP #### [facility] [address] [place], [place] [phone] Senior Java Data Architect: Eber Beckford MD MCHC (RBC) [Mass/Vol] 32.3 g/dL Normal 28.4-34.8 [facility] Comment on above: Performed By: #### B MP, CDP #### [facility] [address] [place], [place] 6258983 Senior Java Data Architect: Eber Beckford MD MCV (RBC) [Entitic vol] 81.3 fL Low 82.6-102.9 [facility] Comment on above: Performed By: #### B PADILLA, CDP #### [address] [place], [place] [phone] Senior Java Data Architect: Eber Beckford MD Monocytes (Bld) [#/Vol] 0.88 10*3/uL Normal 0.10-1.20 [facility] Comment on above: Performed By: #### B PADILLA, CDP #### [facility] [address] [place] [address] [place], [place] 9389483 Senior Java Data Architect: Eber Beckford MD Monocytes/100 WBC (Bld) 11 % Normal 3-12 [facility] Comment on above: Performed By: #### B MP, CDP #### [address] [place], [place] 3123083 Senior Java Data Architect: Eber Beckford MD Neutrophil (Seg) 70 % High 36-65 [facility] Comment on above: Performed By: #### B MP, CDP #### [facility] [address] [place], [place] 2899383 Senior Java Data Architect: Eber Beckford MD NRBC Automated 0.0 per 100 WBC Normal 0.0 [facility] Comment on above: Performed By: #### B MP, CDP #### [facility] [address] [place], [place] 1532983 Senior Java Data Architect: Eber Beckford MD Platelet mean volume (Bld) [Entitic vol] 10.1 fL Normal 8.1-13.5 [facility] Comment on above: Performed By: #### B PADILLA, CDP #### [facility] [address] [place] [address] Senior Java Data Architect: Eber Beckford MD Platelets (Bld) [#/Vol] 314 10*3/uL Normal 138-453 [facility] Comment on above: Performed By: #### B PADILLA, CDP #### [facility] [address] [place] [address] Senior Java Data Architect: Eber Beckford MD RBC (Bld) [#/Vol] 5.67 10*6/uL Normal 4.21-5.77 [facility] Comment on above: Performed By: #### B PADILLA, CDP #### [facility] [address] [place] [address] Senior Java Data Architect: Eber Beckford MD WBC (Bld) [#/Vol] 8.0 10*3/uL Normal 3.5-11.3 [facility] Comment on above: Performed By: #### B PADILLA, CDP #### [facility] [address] [place] [address] [place] [address] Senior Java Data Architect: Eber Beckford MD COVID-19, Rapidon 10-05-2022 SARS-CoV-2 (COVID-19) RNA JOHANNE+probe Ql (Unsp spec) Not detected Not Detected [facility] Comment on above: Rapid NAAT: The specimen [...] management decisions. Fact sheet for Healthcare Providers: https://www.fda.gov/media/768248/download Fact sheet for Patients: https://www.fda.gov/media/869970/download Methodology: Isothermal Nucleic Acid Amplification Specimen Description .NASOPHARYNGEAL SWAB [facility] Flu A/B Ag Detectionon 10-05 Flu A Ag Detection Negative Normal NEG [facility] Comment on above: Result Comment: for Influenza A Antigen Performed By: #### F LUABA #### [facility] [address] [place] [address] Senior Java Data Architect: Eber Beckford MD Flu B Ag Detection Negative Normal [facility] Comment on above: Result Comment: for Influenza B Antigen. Performed By: #### F LUABA #### [facility] [address] [place] [address] Senior Java Data Architect: Eber Beckford MD Rapid influenza A/B antigens on 10-05-2022 Flu A Antigen Negative NEGATIVE [facility] Comment on above: for Influenza A Anti gen Flu B Antigen Negative NEGATIVE [facility] Comment on above: for Influenza B Anti gen. [facility] [id number] 10-05-2022 SARS-CoV-2 (COVID-19) RNA JOHANNE+probe Ql (Unsp spec) Not detected Normal NOTDET [facility] Comment on above: Result Comment: Rapid [...] management decisions. Fact sheet for Healthcare Providers: https://www.fda.gov/media/936330/download Fact sheet for Patients: https://www.fda.gov/media/291993/download Methodology: Isothermal Nucleic Acid Amplification Performed By: #### C OVRB #### [facility] [address] [place] [address] Senior Java Data Architect: Eber Beckford MD Chlamydia/GC DNA, Uron 09-11 Chlamydia Probe, Ur Negative Normal NEG [facility] Comment on above: Result Comment: CHLA [...] target. Performed By: #### U CGP #### [address] [place] [place], [place] [id number] Senior Java Data Architect: Raymond Ho MD Gonorrhea Probe, Ur Negative Normal NEG [facility] Comment on above: Result Comment: NEIS [...] target. Performed By: #### U CGP #### [facility] [address] [place] [address] Senior Java Data Architect: Raymond Ho MD Urinalysis w/ Microon 2021 Bacteria TRACE Abnormal NONE [facility] Comment on above: Performed By: #### U AMIC #### [facility] [address] [place] [address] Senior Java Data Architect: Eber Beckford MD Bilirubin, SemiQt,Ur Negative Normal NEG [facility] Comment on above: Performed By: #### U AMIC #### [facility] [address] [place], [place] 27[address] Senior Java Data Architect: Eber Beckford MD Blood, Urine Negative Normal NEG [facility] Comment on above: Performed By: #### U AMIC #### [facility] [address] [place], [place] 6650583 Senior Java Data Architect: Eber Beckford MD Clarity (U) Clear Normal CLEAR [facility] Comment on above: Performed By: #### U AMIC #### [facility] [address] [place] [address] [place] [address] Senior Java Data Architect: Eber Beckford MD Color (U) Yellow Normal YEL [facility] Comment on above: Performed By: #### U AMIC #### [facility] [address] [place] [address] [place] [address] Senior Java Data Architect: Eber Beckford MD Epithelial cells LM Ql (Urine sed) 0 TO 2 Normal 0-5 [facility] Comment on above: Performed By: #### U AMIC #### [facility] [address] [place] [address] [place], [place] 5139083 Senior Java Data Architect: Eber Beckford MD Glucose Ql (U) Negative Normal NEG [facility] Comment on above: Performed By: #### U AMIC #### [facility] [address] [place], [place] 8936383 Senior Java Data Architect: Eber Beckford MD Ketones Ql (U) Negative Normal NEG [facility] Comment on above: Performed By: #### U AMIC #### [facility] [address] [place] [address] [place] [address] Senior Java Data Architect: Eber Beckford MD Leukocyte esterase Test strip Ql (U) SMALL Abnormal NEG [facility] Comment on above: Performed By: #### U AMIC #### [facility] [address] [place], [place] 846[address]83 Senior Java Data Architect: Eber Beckford MD Mucus Strands 1+ Abnormal NONE [facility] Comment on above: Performed By: #### U AMIC #### [facility] [address] [place], [place] 2730783 Senior Java Data Architect: Eber Beckford MD Nitrite,Ur Negative Normal NEG [facility] Comment on above: Performed By: #### U AMIC #### [facility] [address] [place], [place] 954[address]83 Senior Java Data Architect: Eber Beckford MD PH,Ur 6.0 Normal 5.0-9.0 [facility] Comment on above: Performed By: #### U AMIC #### [facility] [address] [place], [place] 2529883 Senior Java Data Architect: Eber Beckford MD Protein Ql (U) Negative Normal NEG [facility] Comment on above: Performed By: #### U AMIC #### [facility] [address] [place], [place] 1393083 Senior Java Data Architect: Eber Beckford MD Spec. Cornelia,Ur >1.030 High 1.010-1.020 [facility] Comment on above: Performed By: #### U AMIC #### [facility] [address] [place], [place] 7930483 Senior Java Data Architect: Eber Beckford MD Urine RBC's 0 TO 2 Normal 0-2 [facility] Comment on above: Performed By: #### U AMIC #### [facility] [address] [place], [place] 7979483 Senior Java Data Architect: Eber Beckford MD Urine WBC's 10 TO 20 Normal 0-5 [facility] Comment on above: Performed By: #### U AMIC #### [facility] [address] [place] [address] Senior Java Data Architect: Eber Beckford MD Urobilinogen,Ur Normal Normal NORM [facility] Comment on above: Performed By: #### U AMI #### [facility] [address] [place] [address] Senior Java Data Architect: Eber Beckford MD Urinalysis with Microscopico n 09-08-2022 Bacteria, UA TRACE Abnormal None [facility] Bilirubin Urine Negative NEGATIVE [facility] Color, UA Yellow Yellow [facility] Epithelial Cells UA 0 TO 2 [facility] Glucose, Ur Negative NEGATIVE [facility] Interpretation and review of laboratory results Abnormal [facility] Ketones Ql (U) Negative NEGATIVE [facility] Leukocyte esterase Test strip Ql (U) SMALL Abnormal NEGATIVE [facility] Mucus, UA 1+ Abnormal None [facility] Nitrite, Urine Negative NEGATIVE [facility] pH, UA 6.0 5.0 - 9.0 [facility] Protein, UA Negative NEGATIVE [facility] RBC, UA 0 TO 2 [facility] Specific Cornelia, UA High 1.010 - 1.020 [facility] Turbidity UA Clear Clear [facility] Urine Hgb Negative NEGATIVE [facility] Urobilinogen, Urine Normal Normal [facility] WBC, UA 10 TO 20 [facility] Vital Signs Date Time Vital Sign Value Performing Clinician Amie gale 01-06-2023 13:25-0500 Body temperature 98.01 [degF] Zonia Tejada DO Work Phone: [facility] 01-06-2023 13:25-0500 Diastolic blood pressure 79 mm[Hg] Zonia Tejada DO Work Phone: [facility] 01-06-2023 13:25-0500 Heart rate 72 /min Zonia Tejada DO Work Phone: [facility] 01-06-2023 13:25-0500 Respiratory rate 18 /min Zonia Tejada DO Work Phone: [facility] 01-06-2023 13:25-0500 SaO2% (BldA) [Mass fraction] 100 % Zonia Tejada DO Work Phone: [facility] 01-06-2023 13:25-0500 Systolic blood pressure 133 mm[Hg] Zonia Tejada DO Work Phone: [facility] 10-05-2022 20:02-0500 Heart rate 75 /min [facility] 10-05-2022 20:02-0500 Respiratory rate 16 /min [facility] 10-05-2022 16:49-0500 Diastolic blood pressure 82 mm[Hg] [facility] 10-05-2022 16:49-0500 Systolic blood pressure 125 mm[Hg] [facility] 10-05-2022 16:48-0500 Body temperature 97.9 [degF] [facility] 10-05-2022 16:48-0500 SaO2% (BldA) [Mass fraction] 98 % [facility] 09-08-2022 10:24-0500 Diastolic blood pressure 71 mm[Hg] Aileen Ellis DO Work Phone: [facility] 09-08-2022 10:24-0500 Systolic blood pressure 129 mm[Hg] Aileen Giordano DO Work Phone: [facility] 09-08-2022 10:22-0500 Body temperature 97.81 [degF] Aileen Ellis DO Work Phone: [facility] 09-08-2022 10:22-0500 Heart rate 84 /min Aileen Giordano DO Work Phone: [facility] 09-08-2022 10:22-0500 Respiratory rate 18 /min Aileen Giordano DO Work Phone: [facility] 09-08-2022 10:22-0500 SaO2% (BldA) [Mass fraction] 94 % Aileen Giordano DO Work Phone: [facility] Encounters Encounter Date Encounter Type Care Provider Facility Start: 01-06-2023 End: 01-06-2023 Emergency department patient visit [place] Start: 01-06-2023 End: 01-06-2023 Emergency department patient visit [facility] DO Work Phone: [facility] ED Comment on above: Diarrhea, unspecifie d type (Primary Dx) Start: 10-14-2022 End: 10-14-2022 Emergency department patient visit [place] Start: 10-05-2022 End: 10-05-2022 Emergency department patient visit [facility] Start: 10-05-2022 End: 10-05-2022 Emergency department patient visit [facility] ED Comment on above: Viral illness (Prima ry Dx) Start: 09-08-2022 End: 09-08-2022 Emergency department patient visit AILEEN [facility] Start: 09-08-2022 End: 09-08-2022 Emergency department patient visit Aileen Giordano DO Work Phone: [facility] ED Comment on above: Penile discharge (Pr imary Dx) Start: 09-07-2022 End: 09-07-2022 Emergency department patient visit [facility] Procedures Date Procedure Procedure Detail Performing Clinician [...] 05-29-2022 Influenza vaccination Flu vaccine (# 1) Consert Start: 2010 DTaP/Tdap/Td vaccine (1 - Tdap) DTaP/Tdap/Td vaccine (1 - Tdap) Consert Start: 1991 COVID-19 Vaccine (#1) COVID-19 Vacci ne (#1) Consert End: 09-08-2022 C.trachomatis N.gonorrhoeae DNA, Urine [facility] Phone: Comment on above: One Time for 1 Occur rences starting 09/08/2022 until 09/08/2022 Payers Date Payer Category Payer Private Health Insurance [id number] 1991 Unknown [id number] 1991 Unknown [id number] 1991 Unknown [id number] Social History Date Type Detail Facility Start: [facility] History of tobacco use Cigarette Smoker B [facility] Phone: Start: 11-16-2021 End: 10-05-2022 Cigarettes smoked current (pack per day) - Reported 0.5 [facility] Phone: Start: 11-16-2021 End: 10-05-2022 Tobacco use and exposure Smokeless tobacco non-user [facility] Phone: Start: 1990 Sex Assigned At Not on file [facility] Phone: Start: 08-29-2022 End: 01-06-2023 Exposure to SARS-CoV-2 (event) Not sure [facility] Start: 10-05-2022 Tobacco smoking stat us NHIS Ex-smoker [facility] History of tobacco use Current smoker [facility] Work Phone: Hospital Discharge instructions 01-06-2023 Discharge [...] us to take care of you at [facility]. In the next few days you may receive a survey by mail or e-mail asking about the care you received during this visit. Please complete this if you are able, as this feedback helps us provide the best care possible. The following attachments cannot be sent through Care Everywhere.Diarrhea (Yemeni)documented in this encounter [facility] [employer] Phone: Hospital Discharge instructions 09-08-2022 Discharge InstructionsAttachments Note Date & Type Note Facility 09-08-2022 Hospital Discharg e instructions Aileen Giordano DO - 09/08/2022 11:01 AM EST Follow up results on mychart, Take antibiotics until completed, return to Er for worsening symptoms. The following attachments cannot be sent through Care Everywhere.STI (Yemeni)documented in this encounter [facility] [employer] Phone: Evaluation note Note Date & Type Note Facility Evaluation note Diagnosis Penile discharge- Primary Urethral discharge documented in this encounter [facility] Phone: Evaluation note Note Date & Type Note Facility Evaluation note Diagnosis Viral illness- Primary Unspecified viral infection, in conditions classified elsewhere and of unspecified site documented in this encounter [facility] Phone: Evaluation note Note Date & Type Note Facility Evaluation note Diagnosis Diarrhea, unspecified type- Primary documented in this encounter [facility] Phone: Hospital Discharge instructions Attachments Note Date & Type Note Facility Hospital Discharge instructions The following attachments cannot be sent through Care Everywhere.Viral Infections (Yemeni)documented in this encounter [facility] Phone: Summary Purpose Family History No Family [...] section and content) DATE CREATED AUTHOR 01/07/2023 Saarh zazueta FOR RECORDS PERTAINING TO PATIENTS WHO [...] BE BASED ON THE PRIMARY CLINICAL RECORDS. [employer] [facility]. provides no warranty or guarantee of the accuracy or completeness of information in this document.
[2025-02-14] MEDS: KETOROLAC TROMETHAMINE 30 MG/ML VIAL IM (17:05)
--- NOTE | 2025-02-14 18:24 | ED.GENADUL1 ---
HPI HPI - General Adult General Chief complaint: Headache Stated complaint: MIGRAINE Time Seen by Provider: 02/14/25 16:24 Mode of arrival: walk-in History of Present Illness HPI narrative: The patient is coming to the ER with a right-sided headache associated with the photosensitivity, he denies any blurry vision he mentioned that he has been having some issues sleeping this is the second time he presented to the ER,. He took some Excedrin before arrival Related Data Home Medications ?Medication ?Instructions ?Recorded ?Confirmed No Known Home Medications 02/09/25 02/10/25 Allergies Allergy/AdvReac Type Severity Reaction Status Date / Time No Known Drug Allergies Allergy Verified 02/10/25 19:51 Opioid HPI Opioid Management Most Recent Opioid Data: Last Pain Scale 8 02/14/25 17:05 02/14/25 Last MAR Pain Assessment 02/14/25 17:05 Review of Systems ROS Status of ROS 10 or more systems reviewed and unremarkable except as noted in history and below PFSH PFSH Social History Little interest or pleasure in doing things: not at all Feeling down, depressed, or hopeless: not at all Exam Narrative Exam Narrative: Nurses notes and vital signs reviewed and patient is not hypoxic. General: Well-appearing and in no apparent distress. Skin: Warm, dry, no pallor noted. No rash. Head: Normocephalic, atraumatic. Neck: Supple, non-tender. Eye: Pupils are equal, round No scleral icterus. Cardiovascular: Regular Rate and Rhythm without murmur, gallop or rub. Respiratory: No accessory muscle use or respiratory distress. Lungs are clear to auscultation, no wheezing, rales or rhonchi Chest Wall: no tenderness Back: No midline thoracic or lumbar vertebral tenderness. No CVA tenderness Musculoskeletal: normal ROM, no calf or popliteal tenderness, no lower extremity edema/swelling GI: Abdomen is soft, non-distended. Normal bowel sounds. No masses appreciated. No tenderness to palpation. No rebound, guarding, or rigidity noted. Neurological: A&O x4. No cranial nerve dysfunction observed. Constitutional Vital Signs, click to edit/add: Last Vital Signs Temp 98.2 F 02/14/25 16:22 Pulse 72 02/14/25 18:40 Resp 14 02/14/25 18:40 BP 110/60 02/14/25 18:40 Pulse Ox 99 02/14/25 18:40 O2 Del Method Room Air 02/14/25 18:40 Course Vital Signs Vital signs: Vital Signs Temperature 98.2 F 02/14/25 16:22 Pulse Rate 60 02/14/25 16:22 Respiratory Rate 18 02/14/25 16:22 Blood Pressure 105/62 02/14/25 16:22 Pulse Oximetry 98 02/14/25 16:22 Temperature 98.2 F 02/14/25 16:22 Pulse Rate 72 02/14/25 18:40 Respiratory Rate 14 02/14/25 18:40 Blood Pressure 110/60 02/14/25 18:40 Pulse Oximetry 99 02/14/25 18:40 Oxygen Delivery Method Room Air 02/14/25 18:40 Medical Decision Making MDM Narrative Medical decision making narrative: The patient headache was mild and he presented to us at least 1 time before when he already felt better even before he got any medication Patient provided with Toradol after which she was feeling better he was discharged home to continue follow-up with outpatient with his primary care The patient is to follow up with primary care physician in next 2-3 days or to return to the emergency department should any of the signs or symptoms worsen or new symptoms develop. The patient agrees with the following Diagnosis and Treatment plan and the patient will be discharged home. Discharge Plan Discharge Chief Complaint: Headache Clinical Impression: Headache Qualifiers: Headache type: unspecified Headache chronicity pattern: acute headache Intractability: not intractable Qualified Code(s): R51.9 - Headache, unspecified Patient Disposition: Home, Self-Care Time of Disposition Decision: 18:25 Condition: Good Prescriptions / Home Meds: No Action No Known Home Medications Print Language: Greenlandic Instructions: Acute Headache (ED) Referrals: Physician,Non-Staff, MD [Primary Care Provider] - 1 week Discharge Date/Time: 02/14/25 18:41
[2025-02-14 18:40] VITALS: BP 110/60; PULSE 72; O2SAT 99
== END 2025-02-14 18:41 | disposition home or self-care (01) ==
PROVIDERS: Emergency Provider Emergency Medicine
DX: R51.9 Headache, unspecified (principal)
CPT/HCPCS: 96372; 99284; J1885

== ENCOUNTER 2025-03-10 14:40 | Outpatient (OUT) | payer OTHER, SELFPAY ==
--- OUTSIDE RECORDS SUMMARY | 2025-03-09 13:31 | XMS_ITS | CCD ---
Author Organization [facility] Inform ion Partnership [facility] Care Team Providers Care Tree Inspector Name Role Phone Unavailable Primary Care Provider [...] Gr A Direct Ag Positive Abnormal NEG [facility] Comment on above: Result Comment: for Group A Streptococci Performed By: #### R GPA #### [facility] [address] [place], [place] [id number] Vault Worker: Eber Beckford MD Source .THROAT SWAB Normal [facility] Comment on above: Performed By: #### R GPA #### [facility] [address] [place], [place] [id number] Vault Worker: Eber Beckford MD Basic Metabolic Panelon 12-0 Anion gap [Moles/Vol] 8 mmol/L Low 9 - 17 mmol/L [facility] Calcium [Mass/Vol] 9.3 mg/dL 8.6 - 10. 4 mg/dL [facility] Chloride [Moles/Vol] 103 mmol/L 98 - 107 mmol/L [facility] CO2 [Moles/Vol] 25 mmol/L 20 - 31 mmol/L [facility] Creatinine [Mass/Vol] 1.01 mg/dL 0.70 - 1.20 mg/dL [facility] GFR/1.73 sq M.predicted MDRD (S/P/Bld) [Vol rate/Area] - PIN[facility] Comment on above: Effective Jul [...] [Mass/Vol] 97 mg/dL 70 - 99 mg/dL [facility] Interpretation and review of laboratory results Abnormal [facility] Potassium [Moles/Vol] 3.7 mmol/L 3.7 - 5.3 mmol/L [facility] Sodium [Moles/Vol] 136 mmol/L 135 - 144 mmol/L [facility] Urea nitrogen (BldV) [Mass/Vol] 15 mg/dL 6 - 20 mg/dL [facility] Urea nitrogen/Creatinine (Bld) [Mass ratio] 15 9 - 20 [facility] Basic Metabolic Profon 10-05 Anion gap [Moles/Vol] 8 mmol/L Low 9-17 [facility] Comment on above: Performed By: #### B MP, CDP #### [facility] [address] [place], [place] [id number] Vault Worker: Eber Beckford MD BUN/CRE Ratio 15 Normal 9-20 [facility] Comment on above: Performed By: #### B MP, CDP #### [facility] [address] [place], [place] [id number] Vault Worker: Eber Beckford MD Calcium [Mass/Vol] 9.3 mg/dL Normal 8.6-10.4 [facility] Comment on above: Performed By: #### B PADILLA, CDP #### [facility] [address] [place], [place] [phone] Vault Worker: Eber Beckford MD Chloride [Moles/Vol] 103 mmol/L Normal 98-107 [facility] Comment on above: Performed By: #### B PADILLA, CDP #### [facility] [address] [place], [place] [id number] Vault Worker: Eber Beckford MD CO2 [Moles/Vol] 25 mmol/L Normal 20-31 [facility] Comment on above: Performed By: #### B PADILLA, CDP #### [facility] [address] [place], [place] [phone] Vault Worker: Eber Beckford MD Creatinine [Mass/Vol] 1.01 mg/dL Normal 0.70-1.20 [facility] Comment on above: Performed By: #### B MP, CDP #### [facility] [address] [place] [address] Vault Worker: Eber Beckford MD GFR/1.73 sq M.predicted among non-blacks MDRD (S/P/Bld) [Vol rate/Area] mL/min/{1.73_m2} Normal >60 [facility] Comment on above: Result Comment: Effective Jul [...] Performed By: #### B PADILLA, CDP #### [facility] [address] [place] [address] Dr[address] [place], [place] 514[address]83 Vault Worker: Eber Beckford MD Glucose [Mass/Vol] 97 mg/dL Normal 70-99 [facility] Comment on above: Performed By: #### B PADILLA, CDP #### [address] [place] [address] Vault Worker: Eber Beckford MD Potassium [Moles/Vol] 3.7 mmol/L Normal 3.7-5.3 [facility] Comment on above: Performed By: #### B PADILLA, CDP #### [facility] [address] [place] [address] [place] [address] Vault Worker: Eber Beckford MD Sodium [Moles/Vol] 136 mmol/L Normal 135-144 [facility] Comment on above: Performed By: #### B PADILLA, CDP #### [facility] [address] [place] [address] [place] [address] Vault Worker: Eber Beckford MD Urea nitrogen [Mass/Vol] 15 mg/dL Normal 6-20 [facility] Comment on above: Performed By: #### B PADILLA, CDP #### [facility] [address] [place] [address] [place], [place] [phone] Vault Worker: Eber Beckford MD CBC with Auto Differentialon 10-05-2022 Absolute Eos # 0.06 [facility] Absolute Immature Granulocyte 0.09 [facility] Absolute Lymph # 1.38 [facility] Absolute [place]ath # 0.88 [facility] Basophils (Bld) [#/Vol] 0.03 10*3/uL [facility] Basophils/100 WBC (Bld) 0 % 0 - 2 % [facility] Eosinophils/100 WBC (Bld) 1 % 1 - 4 % [facility] Hematocrit (Bld) [Volume fraction] 46.1 % 40.7 - 50.3 % [facility] Hemoglobin (Bld) [Mass/Vol] 14.9 g/dL 13.0 - 17.0 g/dL [facility] Immature granulocytes/100 WBC (Bld) 1 % High 0 [facility] Interpretation and review of laboratory results Abnormal [facility] Lymphocytes/100 WBC (Bld) 17 % Low 24 - 43 % [facility] MCH (RBC) [Entitic mass] 26.3 pg 25.2 - 33.5 pg [facility] MCHC (RBC) [Mass/Vol] 32.3 g/dL 28.4 - 34.8 g/dL [facility] MCV (RBC) [Entitic vol] 81.3 fL Low 82.6 - 102.9 fL [facility] Monocytes/100 WBC (Bld) 11 % 3 - 12 % [facility] NRBC Automated 0.0 0.0 per 100 WBC [facility] Platelet distribution width (Bld) [Ratio] 14.2 % 11.8 - 14.4 % [facility] Platelet mean volume (Bld) [Entitic vol] 10.1 fL 8.1 - 13.5 fL [facility] Platelets (Bld) [#/Vol] 314 10*3/uL [facility] RBC (Bld) [#/Vol] 5.67 10*6/uL 4.21 - 5.7 7 m/uL [facility] Segmented neutrophils/100 WBC (Bld) 70 % High 36 - 65 % [facility] Segs Absolute 5.52 [facility] WBC (Bld) [#/Vol] 8.0 10*3/uL [facility] CBC with Diffon 10-05-2022 Abs. Basophil 0.03 k/uL Normal 0.00-0.20 [facility] Comment on above: Performed By: #### B PADILLA, CDP #### [facility] [address] [place], [place] [phone] Vault Worker: Eber Beckford MD Abs.Imm.Granulocyte 0.09 k/uL Normal 0.00-0.30 [facility] Comment on above: Performed By: #### B PADILLA, CDP #### [facility] [address] [place] [address] Vault Worker: Eber Beckford MD Abs.Neutrophil (Seg) 5.52 k/uL Normal 1.50-8.10 [facility] Comment on above: Performed By: #### B PADILLA, CDP #### [facility] [address] [place], [place] [phone] Vault Worker: Eber Beckford MD Basophils/100 WBC (Bld) 0 % Normal 0-2 [facility] Comment on above: Performed By: #### B PADILLA, CDP #### [address] [place], [place] [phone] Vault Worker: Eber Beckford MD Eosinophils (Bld) [#/Vol] 0.06 10*3/uL Normal 0.00-0.44 [facility] Comment on above: Performed By: #### B PADILLA, CDP #### [facility] [address] [place], [place] 9[address]83 Vault Worker: Eber Beckford MD Eosinophils/100 WBC (Bld) 1 % Normal 1-4 [facility] Comment on above: Performed By: #### B PADILLA, CDP #### [facility] [address] [place], [place] 2865383 Vault Worker: Eber Beckford MD Erythrocyte distribution width (RBC) [Ratio] 14.2 % Normal 11.8-14.4 [facility] Comment on above: Performed By: #### B PADILLA, CDP #### [facility] [address] [place], [place] 899[address]83 Vault Worker: Eber Beckford MD Hematocrit (Bld) [Volume fraction] 46.1 % Normal 40.7-50.3 [facility] Comment on above: Performed By: #### B PADILLA, CDP #### [facility] [address] [place], [place] 1318683 Vault Worker: Eber Beckford MD Hemoglobin (Bld) [Mass/Vol] 14.9 g/dL Normal 13.0-17.0 [facility] Comment on above: Performed By: #### B PADILLA, CDP #### [address] [place], [place] [address]39[address]83 Vault Worker: Eber Beckford MD Immature granulocytes/100 WBC (Bld) 1 % High 0 [facility] Comment on above: Performed By: #### B PADILLA, CDP #### [address] [place], [place] 3646283 Vault Worker: Eber Beckford MD Lymphocytes (Bld) [#/Vol] 1.38 10*3/uL Normal 1.10-3.70 [facility] Comment on above: Performed By: #### B PADILLA, CDP #### [facility] [address] [place] [address] [place] [address] Vault Worker: Eber Beckford MD Lymphocytes/100 WBC (Bld) 17 % Low 24-43 [facility] Comment on above: Performed By: #### B PADILLA, CDP #### [address] [place], [place] 9383983 Vault Worker: Eber Beckford MD MCH (RBC) [Entitic mass] 26.3 pg Normal 25.2-33.5 [facility] Comment on above: Performed By: #### B PADILLA, CDP #### [facility] [address] [place], [place] [phone] Vault Worker: Eber Beckford MD MCHC (RBC) [Mass/Vol] 32.3 g/dL Normal 28.4-34.8 [facility] Comment on above: Performed By: #### B MP, CDP #### [facility] [address] [place], [place] [address] Vault Worker: Eber Beckford MD MCV (RBC) [Entitic vol] 81.3 fL Low 82.6-102.9 [facility] Comment on above: Performed By: #### B PADILLA, CDP #### [address] [place], [place] 4540483 Vault Worker: Eber Beckford MD Monocytes (Bld) [#/Vol] 0.88 10*3/uL Normal 0.10-1.20 [facility] Comment on above: Performed By: #### B PADILLA, CDP #### [facility] [address] [place] [address] [place], [place] 3866983 Vault Worker: Eber Beckford MD Monocytes/100 WBC (Bld) 11 % Normal 3-12 [facility] Comment on above: Performed By: #### B MP, CDP #### [address] [place], [place] 3640283 Vault Worker: Eber Beckford MD Neutrophil (Seg) 70 % High 36-65 [facility] Comment on above: Performed By: #### B MP, CDP #### [facility] [address] [place], [place] 5349483 Vault Worker: Eber Beckford MD NRBC Automated 0.0 per 100 WBC Normal 0.0 [facility] Comment on above: Performed By: #### B MP, CDP #### [facility] [address] [place], [place] 6[address]83 Vault Worker: Eber Beckford MD Platelet mean volume (Bld) [Entitic vol] 10.1 fL Normal 8.1-13.5 [facility] Comment on above: Performed By: #### B PADILLA, CDP #### [facility] [address] [place] [address] Vault Worker: Eber Beckford MD Platelets (Bld) [#/Vol] 314 10*3/uL Normal 138-453 [facility] Comment on above: Performed By: #### B PADILLA, CDP #### [facility] [address] [place] [address] Vault Worker: Eber Beckford MD RBC (Bld) [#/Vol] 5.67 10*6/uL Normal 4.21-5.77 [facility] Comment on above: Performed By: #### B PADILLA, CDP #### [facility] [address] [place] [address] Vault Worker: Eber Beckford MD WBC (Bld) [#/Vol] 8.0 10*3/uL Normal 3.5-11.3 [facility] Comment on above: Performed By: #### B PADILLA, CDP #### [facility] [address] [place] [address] [place] [address] Vault Worker: Eber Beckford MD COVID-19, Rapidon 10-05-2022 SARS-CoV-2 (COVID-19) RNA JOHANNE+probe Ql (Unsp spec) Not detected Not Detected [facility] Comment on above: Rapid NAAT: [...] management decisions. Fact sheet for Healthcare Providers: https://www.fda.gov/media/916124/download Fact sheet for Patients: https://www.fda.gov/media/420414/download Methodology: Isothermal Nucleic Acid Amplification Specimen Description .NASOPHARYNGEAL SWAB [facility] Flu A/B Ag Detectionon 10-05 Flu A Ag Detection Negative Normal NEG [facility] Comment on above: Result Comment: for Influenza A Antigen Performed By: #### F LUABA #### [facility] [address] [place] [address] Vault Worker: Eber Beckford MD Flu B Ag Detection Negative Normal [facility] Comment on above: Result Comment: for Influenza B Antigen. Performed By: #### F LUABA #### [facility] [address] [place] [address] Vault Worker: Eber Beckford MD Rapid influenza A/B antigens on 10-05-2022 Flu A Antigen Negative NEGATIVE [facility] Comment on above: for Influenza A Anti gen Flu B Antigen Negative NEGATIVE [facility] Comment on above: for Influenza B Anti gen. [facility] [id number] 10-05-2022 SARS-CoV-2 (COVID-19) RNA JOHANNE+probe Ql (Unsp spec) Not detected Normal NOTDET [facility] Comment on above: Result Comment: Rapid NAAT: [...] management decisions. Fact sheet for Healthcare Providers: https://www.fda.gov/media/938591/download Fact sheet for Patients: https://www.fda.gov/media/855547/download Methodology: Isothermal Nucleic Acid Amplification Performed By: #### C OVRB #### [facility] [address] [place] [address] Vault Worker: Eber Beckford MD Chlamydia/GC DNA, Uron 09-11 Chlamydia Probe, Ur Negative Normal NEG [facility] Comment on above: Result Comment: CHLA MYDIA [...] target. Performed By: #### U CGP #### [address] [place], [place] 7639[address] Vault Worker: Raymond Ho MD Gonorrhea Probe, Ur Negative Normal NEG [facility] Comment on above: Result Comment: NEIS SERIA [...] target. Performed By: #### U CGP #### [facility] [address] [place] [address] Vault Worker: Raymond Ho MD Urinalysis w/ Microon 2021 Bacteria TRACE Abnormal NONE [facility] Comment on above: Performed By: #### U AMIC #### [facility] [address] [place] [address] Vault Worker: Eber Beckford MD Bilirubin, SemiQt,Ur Negative Normal NEG [facility] Comment on above: Performed By: #### U AMIC #### [facility] [address] [place], [place] 1764283 Vault Worker: Eber Beckford MD Blood, Urine Negative Normal NEG [facility] Comment on above: Performed By: #### U AMIC #### [facility] [address] [place], [place] 9295683 Vault Worker: Eber Beckford MD Clarity (U) Clear Normal CLEAR [facility] Comment on above: Performed By: #### U AMIC #### [facility] [address] [place] [address] [place] [address] Vault Worker: Eber Beckford MD Color (U) Yellow Normal YEL [facility] Comment on above: Performed By: #### U AMIC #### [facility] [address] [place] [address] [place] [address] Vault Worker: Eber Beckford MD Epithelial cells LM Ql (Urine sed) 0 TO 2 Normal 0-5 [facility] Comment on above: Performed By: #### U AMIC #### [facility] [address] [place] [address] [place], [place] 8095783 Vault Worker: Eber Beckford MD Glucose Ql (U) Negative Normal NEG [facility] Comment on above: Performed By: #### U AMIC #### [facility] [address] [place], [place] 1886483 Vault Worker: Eber Beckford MD Ketones Ql (U) Negative Normal NEG [facility] Comment on above: Performed By: #### U AMIC #### [facility] [address] [place] [address] [place] [address] Vault Worker: Eber Beckford MD Leukocyte esterase Test strip Ql (U) SMALL Abnormal NEG [facility] Comment on above: Performed By: #### U AMIC #### [facility] [address] [place], [place] [address]83 Vault Worker: Eber Beckford MD Mucus Strands 1+ Abnormal NONE [facility] Comment on above: Performed By: #### U AMIC #### [facility] [address] [place], [place] 8397283 Vault Worker: Eber Beckford MD Nitrite,Ur Negative Normal NEG [facility] Comment on above: Performed By: #### U AMIC #### [facility] [address] [place], [place] 3049[address] Vault Worker: Eber Beckford MD PH,Ur 6.0 Normal 5.0-9.0 [facility] Comment on above: Performed By: #### U AMIC #### [facility] [address] [place], [place] 4268983 Vault Worker: Eber Beckford MD Protein Ql (U) Negative Normal NEG [facility] Comment on above: Performed By: #### U AMIC #### [facility] [address] [place], [place] 3358183 Vault Worker: Eber Beckford MD Spec. [place],Ur >1.030 High 1.010-1.020 [facility] Comment on above: Performed By: #### U AMIC #### [facility] [address] [place], [place] [address]489[address] Vault Worker: Eber Bcekford MD Urine RBC's 0 TO 2 Normal 0-2 [facility] Comment on above: Performed By: #### U AMIC #### [facility] [address] [place], [place] 46[address] Vault Worker: Eber Beckford MD Urine WBC's 10 TO 20 Normal 0-5 [facility] Comment on above: Performed By: #### U AMIC #### [facility] [address] [place] [address] Vault Worker: Eber Beckford MD Urobilinogen,Ur Normal Normal NORM [facility] Comment on above: Performed By: #### U AMI #### [facility] [address] [place] [address] Vault Worker: Eber Beckford MD Urinalysis with Microscopico n 09-08-2022 Bacteria, UA TRACE Abnormal None [facility] Bilirubin Urine Negative NEGATIVE [facility] Color, UA Yellow Yellow [facility] Epithelial Cells UA 0 TO 2 [facility] Glucose, Ur Negative NEGATIVE [facility] Interpretation and review of laboratory results Abnormal [facility] Ketones Ql (U) Negative NEGATIVE [facility] Leukocyte esterase Test strip Ql (U) SMALL Abnormal NEGATIVE [facility] Mucus, UA 1+ Abnormal None [facility] Nitrite, Urine Negative NEGATIVE [facility] pH, UA 6.0 5.0 - 9.0 [facility] Protein, UA Negative NEGATIVE [facility] RBC, UA 0 TO 2 [facility] Specific [place], UA High 1.010 - 1.020 [facility] Turbidity UA Clear Clear [facility] Urine Hgb Negative NEGATIVE [facility] Urobilinogen, Urine Normal Normal [facility] WBC, UA 10 TO 20 [facility] Vital Signs Date Time Vital Sign Value Performing Clinician Amie gale 01-06-2023 13:25-0500 Body temperature 98.01 [degF] Zonia Tejada DO Work Phone: [facility] 01-06-2023 13:25-0500 Diastolic blood pressure 79 mm[Hg] Zonia Tejada DO Work Phone: [facility] 01-06-2023 13:25-0500 Heart rate 72 /min Zonia Tejada DO Work Phone: [facility] 01-06-2023 13:25-0500 Respiratory rate 18 /min Zonia Tejada DO Work Phone: [facility] [employer] 01-06-2023 13:25-0500 SaO2% (BldA) [Mass fraction] 100 % Zonia Tejada DO Work Phone: [facility] [employer] 01-06-2023 13:25-0500 Systolic blood pressure 133 mm[Hg] Zonia Tejada DO Work Phone: [facility] [employer] 10-05-2022 20:02-0500 Heart rate 75 /min [facility] [employer] 10-05-2022 20:02-0500 Respiratory rate 16 /min [facility] [employer] 10-05-2022 16:49-0500 Diastolic blood pressure 82 mm[Hg] [facility] [employer] 10-05-2022 16:49-0500 Systolic blood pressure 125 mm[Hg] [facility] [employer] 10-05-2022 16:48-0500 Body temperature 97.9 [degF] [facility] [employer] 10-05-2022 16:48-0500 SaO2% (BldA) [Mass fraction] 98 % [facility] [employer] 09-08-2022 10:24-0500 Diastolic blood pressure 71 mm[Hg] Aileen Ellis DO Work Phone: [facility] [employer] 09-08-2022 10:24-0500 Systolic blood pressure 129 mm[Hg] Aileen Giordano DO Work Phone: [facility] [employer] 09-08-2022 10:22-0500 Body temperature 97.81 [degF] Aileen Ellis DO Work Phone: [facility] [employer] 09-08-2022 10:22-0500 Heart rate 84 /min Aileen Giordano DO Work Phone: [facility] [employer] 09-08-2022 10:22-0500 Respiratory rate 18 /min Aileen Giordano DO Work Phone: [facility] [employer] 09-08-2022 10:22-0500 SaO2% (BldA) [Mass fraction] 94 % Aileen Giordano DO Work Phone: [facility] Encounters Encounter Date Encounter Type Care Provider Facility Start: 01-06-2023 End: 01-06-2023 Emergency department patient visit [facility] Start: 01-06-2023 End: 01-06-2023 Emergency department patient visit [facility] DO Work Phone: [facility] ED Comment on above: Diarrhea, unspecifie d type (Primary Dx) Start: 10-14-2022 End: 10-14-2022 Emergency department patient visit [facility] Start: 10-05-2022 End: 10-05-2022 Emergency department patient visit [facility] Start: 10-05-2022 End: 10-05-2022 Emergency department patient visit [facility] ED Comment on above: Viral illness (Prima ry Dx) Start: 09-08-2022 End: 09-08-2022 Emergency department patient visit AILEEN Whitfield [facility] Start: 09-08-2022 End: 09-08-2022 Emergency department patient visit Aileen Giordano DO Work Phone: [facility] ED Comment on above: Penile discharge (Pr imary Dx) Start: 09-07-2022 End: 09-07-2022 Emergency department patient visit [facility] Procedures Date Procedure Procedure Detail Performing [...] 05-29-2022 Influenza vaccination Flu vaccine (# 1) [employer] Start: 2010 DTaP/Tdap/Td vaccine (1 - Tdap) DTaP/Tdap/Td vaccine (1 - Tdap) [employer] Start: 1991 COVID-19 Vaccine (#1) COVID-19 Vacci ne (#1) [employer] End: 09-08-2022 C.trachomatis N.gonorrhoeae DNA, Urine [facility] Phone: Comment on above: One Time for 1 Occur rences starting 09/08/2022 until 09/08/2022 Payers Date Payer Category Payer Private Health Insurance [id number] 1991 Unknown [id number] 1991 Unknown [id number] 1991 Unknown [id number] Social History Date Type Detail Facility [facility]: [facility] [employer] 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 In the next few days you may receive a survey by mail or e-mail asking about the care you received during this visit. Please complete this if you are able, as this feedback helps us provide the best care possible. The following attachments cannot be sent through Care Everywhere.Diarrhea (Zambian)documented in this encounter [facility] [facility] [employer] Work Phone: Hospital Discharge instructions 09-08-2022 Discharge InstructionsAttachments Note Date & Type Note Facility 09-08-2022 Hospital Discharg e instructions Aileen Giordano DO - 09/08/2022 11:01 AM EST Follow up results on mychart, Take antibiotics until completed, return to Er for worsening symptoms. The following attachments cannot be sent through Care Everywhere.STI ([place]ian)documented in this encounter [facility] [employer] Phone: Evaluation note Note Date & Type Note Facility Evaluation note Diagnosis Penile discharge- Primary Urethral discharge documented in this encounter [employer] Phone: Evaluation note Note Date & Type Note Facility Evaluation note Diagnosis Viral illness- Primary Unspecified viral infection, in conditions classified elsewhere and of unspecified site documented in this encounter [employer] Phone: Evaluation note Note Date & Type Note Facility Evaluation note Diagnosis Diarrhea, unspecified type- Primary documented in this encounter [employer] Phone: Hospital Discharge instructions Attachments Note Date & Type Note Facility Hospital Discharge instructions The following attachments cannot be sent through Care Everywhere.Viral Infections ([place]ian)documented in this encounter [employer] Phone: Summary Purpose Family History No Family [...] BE BASED ON THE PRIMARY CLINICAL RECORDS. [employer] [facility]. provides no warranty or guarantee of the accuracy or completeness of information in this document.
[2025-03-10 14:58] LABS: Basophils Absolute Auto 0.1 10^3/uL (0.0-0.1); Basophils Percent Auto 0.9 % (0.2-2.0); Eosinophils Absolute Auto 0.1 10^3/uL (0.0-0.7); Eosinophils Percent Auto 1.1 % (0.9-7.0); Hematocrit 42.2 % (42.0-54.0); Hemoglobin 13.6 g/dL (14.0-18.0); Immature Granulocytes Abs Auto 0.03 10^3/uL (0.00-0.03); Immature Granulocytes Pct Auto 0.5 % (0.0-0.5); Lymphocytes Absolute Auto 2.8 10^3/uL (1.2-3.8); Lymphocytes Percent Auto 44.8 % (20.5-60.0); Mean Corpuscular HGB Conc 32.2 g/dL (29.9-35.2); Mean Corpuscular Hemoglobin 26.2 pg (25.9-34.0); Mean Corpuscular Volume 81.2 fL (80.0-94.0); Mean Platelet Volume 10.4 fL (9.5-13.5); Monocytes Absolute Auto 0.6 10^3/uL (0.3-0.8); Monocytes Percent Auto 8.7 % (1.7-12.0); Neutrophils Absolute Auto 2.8 10^3/uL (1.4-6.5); Platelet Count 277 10^3/uL (150-450); White Blood Count 6.3 10^3/uL (4.0-11.0)
[2025-03-10 15:29] LABS: Alanine Aminotransferase 37 U/L (16-63); Albumin Globulin Ratio 1.2; Albumin Level 3.8 g/dL (3.4-5.0); Alkaline Phosphatase 95 U/L (46-116); Aspartate Amino Transferase 17 U/L (15-37); BUN Creatinine Ratio 7.8; Bilirubin Total 0.4 mg/dL (0.2-1.0); Calcium 9.3 mg/dL (8.5-10.1); Carbon Dioxide 30.9 mmol/L (21.0-32.0); Chloride 105 mmol/L (98-107); Cholesterol 126 mg/dL (<=200); Estimated GFR (African America >60 (>=60 mL/min/1.73m^2); Estimated GFR (Non-African Ame >60 (>=60 mL/min/1.73m^2); Globulin 3.2 g/dL; Glucose 89 mg/dL (74-106); HDL Cholesterol 64 mg/dL (40-60); Potassium 3.9 mmol/L (3.5-5.1); Sodium 139 mmol/L (136-145); Triglycerides 49 mg/dL (<=150); VLDL CHOLESTEROL 9.8 mg/dL
[2025-03-10 15:56] LABS: Estimated Average Glucose 120 mg/dL; Glycohemoglobin A1C 5.8 % (4.5-6.2)
== END 2025-03-10 14:41 | disposition home or self-care (01) ==
LOC: LAB 14:40
PROVIDERS: PCP Family Medicine; Visit Provider Family Medicine
DX: Z00.00 Encounter for general adult medical examination without abnormal findings (principal)
CPT/HCPCS: 36415; 80053; 80061; 83036; 85025

== ENCOUNTER 2025-08-07 14:33 | Emergency (ER) | payer SELFPAY ==
[2025-08-07 14:34] VITALS: BP 165/76; PULSE 80; TEMP 36.4; O2SAT 99; BMI 27.9
--- OUTSIDE RECORDS SUMMARY | 2025-08-07 14:41 | XMS_ITS | CCD ---
Author Organization [facility] Inform ion Partnership [facility] Care Team Providers Care Siphoner Name Role Phone Unavailable Primary Care Provider [...] Gr A Direct Ag Positive Abnormal NEG [facility] Comment on above: Result Comment: for Group A Streptococci Performed By: #### R GPA #### [facility] [address] [place], [place] [id number] Optical Store Manager: Eber Beckford MD Source .THROAT SWAB Normal [facility] Comment on above: Performed By: #### R GPA #### [facility] [address] [place], [place] [id number] Optical Store Manager: Eber Beckford MD Basic Metabolic Panelon 12-0 Anion gap [Moles/Vol] 8 mmol/L Low 9 - 17 mmol/L [facility] Calcium [Mass/Vol] 9.3 mg/dL 8.6 - 10. 4 mg/dL [facility] Chloride [Moles/Vol] 103 mmol/L 98 - 107 mmol/L [facility] CO2 [Moles/Vol] 25 mmol/L 20 - 31 mmol/L [facility] Creatinine [Mass/Vol] 1.01 mg/dL 0.70 - 1.20 mg/dL [facility] GFR/1.73 sq M.predicted MDRD (S/P/Bld) [Vol rate/Area] - PINF [facility] Comment on above: Effective Jul 31, [...] 97 mg/dL 70 - 99 mg/dL [facility] Interpretation and review of laboratory results Abnormal [facility] Potassium [Moles/Vol] 3.7 mmol/L 3.7 - 5.3 mmol/L [facility] Sodium [Moles/Vol] 136 mmol/L 135 - 144 mmol/L [facility] Urea nitrogen (BldV) [Mass/Vol] 15 mg/dL 6 - 20 mg/dL [facility] Urea nitrogen/Creatinine (Bld) [Mass ratio] 15 9 - 20 [facility] Basic Metabolic Profon 10-05 Anion gap [Moles/Vol] 8 mmol/L Low 9-17 [facility] Comment on above: Performed By: #### B MP, CDP #### [facility] [address] [place], [place] [id number] Optical Store Manager: Eber Beckford MD BUN/CRE Ratio 15 Normal 9-20 [facility] Comment on above: Performed By: #### B MP, CDP #### [facility] [address] [place], [place] [id number] Optical Store Manager: Eber Beckford MD Calcium [Mass/Vol] 9.3 mg/dL Normal 8.6-10.4 [facility] Comment on above: Performed By: #### B PADILLA, CDP #### [facility] [address] [place], [place] [id number] Optical Store Manager: Eber Beckford MD Chloride [Moles/Vol] 103 mmol/L Normal 98-107 [facility] Comment on above: Performed By: #### B PADILLA, CDP #### [facility] [address] [place], [place] 5927683 Optical Store Manager: Eber Beckford MD CO2 [Moles/Vol] 25 mmol/L Normal 20-31 [facility] Comment on above: Performed By: #### B PADILLA, CDP #### [facility] [address] [place], [place] 7466383 Optical Store Manager: Eber Beckford MD Creatinine [Mass/Vol] 1.01 mg/dL Normal 0.70-1.20 [facility] Comment on above: Performed By: #### B MP, CDP #### [facility] [address] [place] [address] Optical Store Manager: Eber Beckford MD GFR/1.73 sq M.predicted among non-blacks MDRD (S/P/Bld) [Vol rate/Area] mL/min/{1.73_m2} Normal >60 [facility] Comment on above: Result Comment: Effective [...] Performed By: #### B PADILLA, CDP #### [facility] [address] [place] [address] Dr[address] [place], [place] 9233883 Optical Store Manager: Eber Beckford MD Glucose [Mass/Vol] 97 mg/dL Normal 70-99 [facility] Comment on above: Performed By: #### B PADILLA, CDP #### [address] [place] [address] Optical Store Manager: Eber Beckford MD Potassium [Moles/Vol] 3.7 mmol/L Normal 3.7-5.3 [facility] Comment on above: Performed By: #### B PADILLA, CDP #### [facility] [address] [place] [address] [place] [address] Optical Store Manager: Eber Beckford MD Sodium [Moles/Vol] 136 mmol/L Normal 135-144 [facility] Comment on above: Performed By: #### B PADILLA, CDP #### [facility] [address] [place] [address] [place] [address] Optical Store Manager: Eber Beckford MD Urea nitrogen [Mass/Vol] 15 mg/dL Normal 6-20 [facility] Comment on above: Performed By: #### B PADILLA, CDP #### [facility] [address] [place] [address] Dr. [place], [place] [id number] Optical Store Manager: Eber Beckford MD CBC with Auto Differentialon 10-05-2022 Absolute Eos # 0.06 [facility] Absolute Immature Granulocyte 0.09 [facility] Absolute Lymph # 1.38 [facility] Absolute Mccone # 0.88 [facility] Basophils (Bld) [#/Vol] 0.03 10*3/uL [facility] Basophils/100 WBC (Bld) 0 % 0 - 2 % [facility] Eosinophils/100 WBC (Bld) 1 % 1 - 4 % [facility] Hematocrit (Bld) [Volume fraction] 46.1 % 40.7 - 50.3 % [facility] Hemoglobin (Bld) [Mass/Vol] 14.9 g/dL 13.0 - 17.0 g/dL [facility] Immature granulocytes/100 WBC (Bld) 1 % High 0 [facility] Interpretation and review of laboratory results Abnormal [facility] Lymphocytes/100 WBC (Bld) 17 % Low 24 - 43 % [facility] MCH (RBC) [Entitic mass] 26.3 pg 25.2 - 33.5 pg [facility] MCHC (RBC) [Mass/Vol] 32.3 g/dL 28.4 - 34.8 g/dL [facility] MCV (RBC) [Entitic vol] 81.3 fL Low 82.6 - 102.9 fL [facility] Monocytes/100 WBC (Bld) 11 % 3 - 12 % [facility] NRBC Automated 0.0 0.0 per 100 WBC [facility] Platelet distribution width (Bld) [Ratio] 14.2 % 11.8 - 14.4 % [facility] Platelet mean volume (Bld) [Entitic vol] 10.1 fL 8.1 - 13.5 fL [facility] Platelets (Bld) [#/Vol] 314 10*3/uL [facility] RBC (Bld) [#/Vol] 5.67 10*6/uL 4.21 - 5.7 7 m/uL [facility] Segmented neutrophils/100 WBC (Bld) 70 % High 36 - 65 % [facility] Segs Absolute 5.52 [facility] WBC (Bld) [#/Vol] 8.0 10*3/uL [facility] CBC with Diffon 10-05-2022 Abs. Basophil 0.03 k/uL Normal 0.00-0.20 [facility] Comment on above: Performed By: #### B PADILLA, CDP #### [facility] [address] [place], [place] [id number] Optical Store Manager: Eber Beckford MD Abs.Imm.Granulocyte 0.09 k/uL Normal 0.00-0.30 [facility] Comment on above: Performed By: #### B PADILLA, CDP #### [facility] [address] [place] [address] Optical Store Manager: Eber Beckford MD Abs.Neutrophil (Seg) 5.52 k/uL Normal 1.50-8.10 [facility] Comment on above: Performed By: #### B PADILLA, CDP #### [facility] [address] [place], [place] 1094183 Optical Store Manager: Eber Beckford MD Basophils/100 WBC (Bld) 0 % Normal 0-2 [facility] Comment on above: Performed By: #### B PADILLA, CDP #### [address] [place], [place] 6[address]83 Optical Store Manager: Eber Beckford MD Eosinophils (Bld) [#/Vol] 0.06 10*3/uL Normal 0.00-0.44 [facility] Comment on above: Performed By: #### B PADILLA, CDP #### [facility] [address] [place], [place] 639[address]83 Optical Store Manager: Eber Beckford MD Eosinophils/100 WBC (Bld) 1 % Normal 1-4 [facility] Comment on above: Performed By: #### B PADILLA, CDP #### [facility] [address] [place], [place] 2300783 Optical Store Manager: Eber Beckford MD Erythrocyte distribution width (RBC) [Ratio] 14.2 % Normal 11.8-14.4 [facility] Comment on above: Performed By: #### B PADILLA, CDP #### [facility] [address] [place], [place] 8620783 Optical Store Manager: Eber Beckford MD Hematocrit (Bld) [Volume fraction] 46.1 % Normal 40.7-50.3 [facility] Comment on above: Performed By: #### B PADILLA, CDP #### [facility] [address] [place], [place] 1030283 Optical Store Manager: Eber Beckford MD Hemoglobin (Bld) [Mass/Vol] 14.9 g/dL Normal 13.0-17.0 [facility] Comment on above: Performed By: #### B PADILLA, CDP #### [address] [place], [place] [address]83 Optical Store Manager: Eber Beckford MD Immature granulocytes/100 WBC (Bld) 1 % High 0 [facility] Comment on above: Performed By: #### B PADILLA, CDP #### [address] [place], [place] 3249483 Optical Store Manager: Eber Beckford MD Lymphocytes (Bld) [#/Vol] 1.38 10*3/uL Normal 1.10-3.70 [facility] Comment on above: Performed By: #### B PADILLA, CDP #### [facility] [address] [place] [address] [place] [address] Optical Store Manager: Eber Beckford MD Lymphocytes/100 WBC (Bld) 17 % Low 24-43 [facility] Comment on above: Performed By: #### B PADILLA, CDP #### [address] [place], [place] 1113583 Optical Store Manager: Eber Beckford MD MCH (RBC) [Entitic mass] 26.3 pg Normal 25.2-33.5 [facility] Comment on above: Performed By: #### B PADILLA, CDP #### [facility] [address] [place], [place] 628[address]83 Optical Store Manager: Eber Beckford MD MCHC (RBC) [Mass/Vol] 32.3 g/dL Normal 28.4-34.8 [facility] Comment on above: Performed By: #### B MP, CDP #### [facility] [address] [place], [place] 1328183 Optical Store Manager: Eber Beckford MD MCV (RBC) [Entitic vol] 81.3 fL Low 82.6-102.9 [facility] Comment on above: Performed By: #### B PADILLA, CDP #### [address] [place], [place] 623[address]83 Optical Store Manager: Eber Beckford MD Monocytes (Bld) [#/Vol] 0.88 10*3/uL Normal 0.10-1.20 [facility] Comment on above: Performed By: #### B PADILLA, CDP #### [facility] [address] [place] [address] [place]. [place], [place] 2853883 Optical Store Manager: Eber Beckford MD Monocytes/100 WBC (Bld) 11 % Normal 3-12 [facility] Comment on above: Performed By: #### B MP, CDP #### [address] [place], [place] 8386383 Optical Store Manager: Eber Beckford MD Neutrophil (Seg) 70 % High 36-65 [facility] Comment on above: Performed By: #### B MP, CDP #### [facility] [address] [place], [place] 809[address]83 Optical Store Manager: Eber Beckford MD NRBC Automated 0.0 per 100 WBC Normal 0.0 [facility] Comment on above: Performed By: #### B MP, CDP #### [facility] [address] [place], [place] 0023783 Optical Store Manager: Ebre Beckford MD Platelet mean volume (Bld) [Entitic vol] 10.1 fL Normal 8.1-13.5 [facility] Comment on above: Performed By: #### B PADILLA, CDP #### [facility] [address] [place] [address] Optical Store Manager: Eber Beckford MD Platelets (Bld) [#/Vol] 314 10*3/uL Normal 138-453 [facility] Comment on above: Performed By: #### B PADILLA, CDP #### [facility] [address] [place] [address] Optical Store Manager: Eber Beckford MD RBC (Bld) [#/Vol] 5.67 10*6/uL Normal 4.21-5.77 [facility] Comment on above: Performed By: #### B PADILLA, CDP #### [facility] [address] [place] [address] Optical Store Manager: Eber Beckford MD WBC (Bld) [#/Vol] 8.0 10*3/uL Normal 3.5-11.3 [facility] Comment on above: Performed By: #### B PADILLA, CDP #### [facility] [address] [place] [address] [place] [address] Optical Store Manager: Eber Beckford MD COVID-19, Rapidon 10-05-2022 SARS-CoV-2 (COVID-19) RNA JOHANNE+probe Ql (Unsp spec) Not detected Not Detected [facility] Comment on above: Rapid NAAT: The [...] management decisions. Fact sheet for Healthcare Providers: https://www.fda.gov/media/258887/download Fact sheet for Patients: https://www.fda.gov/media/211636/download Methodology: Isothermal Nucleic Acid Amplification Specimen Description .NASOPHARYNGEAL SWAB [facility] Flu A/B Ag Detectionon 10-05 Flu A Ag Detection Negative Normal NEG [facility] Comment on above: Result Comment: for Influenza A Antigen Performed By: #### F LUABA #### [facility] [address] [place] [address] Optical Store Manager: Eber Beckford MD Flu B Ag Detection Negative Normal [facility] Comment on above: Result Comment: for Influenza B Antigen. Performed By: #### F LUABA #### [facility] [address] [place] [address] Optical Store Manager: Eber Beckford MD Rapid influenza A/B antigens on 10-05-2022 Flu A Antigen Negative NEGATIVE [facility] Comment on above: for Influenza A Anti gen Flu B Antigen Negative NEGATIVE [facility] Comment on above: for Influenza B Anti gen. [facility] [id number] 10-05-2022 SARS-CoV-2 (COVID-19) RNA JOHANNE+probe Ql (Unsp spec) Not detected Normal NOTDET [facility] Comment on above: Result Comment: Rapid [...] management decisions. Fact sheet for Healthcare Providers: https://www.fda.gov/media/887035/download Fact sheet for Patients: https://www.fda.gov/media/050280/download Methodology: Isothermal Nucleic Acid Amplification Performed By: #### C OVRB #### [facility] [address] [place] [address] Optical Store Manager: Eber Beckford MD Chlamydia/GC DNA, Uron 09-11 Chlamydia Probe, Ur Negative Normal NEG [facility] Comment on above: Result Comment: CHLA [...] target. Performed By: #### U CGP #### [address] [place], [place] 8469708 Optical Store Manager: Raymond Ho MD Gonorrhea Probe, Ur Negative Normal NEG [facility] Comment on above: Result Comment: NEIS [...] target. Performed By: #### U CGP #### [facility] [address] [place] [address] Optical Store Manager: Raymond Ho MD Urinalysis w/ Microon 2021 Bacteria TRACE Abnormal NONE [facility] Comment on above: Performed By: #### U AMIC #### [facility] [address] [place] [address] Optical Store Manager: Eber Beckford MD Bilirubin, SemiQt,Ur Negative Normal NEG [facility] Comment on above: Performed By: #### U AMIC #### [facility] [address] [place], [place] 577[address]83 Optical Store Manager: Eber Beckford MD Blood, Urine Negative Normal NEG [facility] Comment on above: Performed By: #### U AMIC #### [facility] [address] [place], [place] 2974083 Optical Store Manager: Eber Beckford MD Clarity (U) Clear Normal CLEAR [facility] Comment on above: Performed By: #### U AMIC #### [facility] [address] [place] [address] [place] [address] Optical Store Manager: Eber Beckford MD Color (U) Yellow Normal YEL [facility] Comment on above: Performed By: #### U AMIC #### [facility] [address] [place] [address] [place] [address] Optical Store Manager: Eber Beckford MD Epithelial cells LM Ql (Urine sed) 0 TO 2 Normal 0-5 [facility] Comment on above: Performed By: #### U AMIC #### [facility] [address] [place] [address] Dr. [place], [place] 0377483 Optical Store Manager: Eber Beckford MD Glucose Ql (U) Negative Normal NEG [facility] Comment on above: Performed By: #### U AMIC #### [facility] [address] [place], [place] 3799783 Optical Store Manager: Eber Beckford MD Ketones Ql (U) Negative Normal NEG [facility] Comment on above: Performed By: #### U AMIC #### [facility] [address] [place] [address] [place] [address] Optical Store Manager: Eber Beckford MD Leukocyte esterase Test strip Ql (U) SMALL Abnormal NEG [facility] Comment on above: Performed By: #### U AMIC #### [facility] [address] [place], [place] 7088383 Optical Store Manager: Eber Beckford MD Mucus Strands 1+ Abnormal NONE [facility] Comment on above: Performed By: #### U AMIC #### [facility] [address] [place], [place] 317[address]83 Optical Store Manager: Eber Beckford MD Nitrite,Ur Negative Normal NEG [facility] Comment on above: Performed By: #### U AMIC #### [facility] [address] [place], [place] 3300483 Optical Store Manager: Eber Beckford MD PH,Ur 6.0 Normal 5.0-9.0 [facility] Comment on above: Performed By: #### U AMIC #### [facility] [address] [place], [place] 1797283 Optical Store Manager: Eber Beckford MD Protein Ql (U) Negative Normal NEG [facility] Comment on above: Performed By: #### U AMIC #### [facility] [address] [place], [place] 625[address]83 Optical Store Manager: Eber Beckford MD Spec. [place],Ur >1.030 High 1.010-1.020 [facility] Comment on above: Performed By: #### U AMIC #### [facility] [address] [place], [place] 4136883 Optical Store Manager: Eber Beckford MD Urine RBC's 0 TO 2 Normal 0-2 [facility] Comment on above: Performed By: #### U AMIC #### [facility] [address] [place], [place] [address]83 Optical Store Manager: Eber Beckford MD Urine WBC's 10 TO 20 Normal 0-5 [facility] Comment on above: Performed By: #### U AMIC #### [facility] [address] [place] [address] Optical Store Manager: Eber Beckford MD Urobilinogen,Ur Normal Normal NORM [facility] Comment on above: Performed By: #### U AMI #### [facility] [address] [place] [address] Optical Store Manager: Eber Beckford MD Urinalysis with Microscopico n 09-08-2022 Bacteria, UA TRACE Abnormal None [facility] Bilirubin Urine Negative NEGATIVE [facility] Color, UA Yellow Yellow [facility] Epithelial Cells UA 0 TO 2 [facility] Glucose, Ur Negative NEGATIVE [facility] Interpretation and review of laboratory results Abnormal [facility] Ketones Ql (U) Negative NEGATIVE [facility] Leukocyte esterase Test strip Ql (U) SMALL Abnormal NEGATIVE [facility] Mucus, UA 1+ Abnormal None [facility] Nitrite, Urine Negative NEGATIVE [facility] pH, UA 6.0 5.0 - 9.0 [facility] Protein, UA Negative NEGATIVE [facility] RBC, UA 0 TO 2 [facility] Specific [place], UA High 1.010 - 1.020 B ON [facility] Turbidity UA Clear Clear [facility] Urine Hgb Negative NEGATIVE [facility] Urobilinogen, Urine Normal Normal [facility] WBC, UA 10 TO 20 [facility] Vital Signs Date Time Vital Sign Value Performing Clinician Amie gale 01-06-2023 13:25-0500 Body temperature 98.01 [degF] Zonia Tejada DO Work Phone: [facility] 01-06-2023 13:25-0500 Diastolic blood pressure 79 mm[Hg] Zonia Tejada DO Work Phone: [facility] 01-06-2023 13:25-0500 Heart rate 72 /min Zonia Tejada DO Work Phone: [facility] 01-06-2023 13:25-0500 Respiratory rate 18 /min Zonia Tejada DO Work Phone: [facility] 01-06-2023 13:25-0500 SaO2% (BldA) [Mass fraction] 100 % Zonia Tejada DO Work Phone: [facility] 01-06-2023 13:25-0500 Systolic blood pressure 133 mm[Hg] Zonia Tejada DO Work Phone: [facility] 10-05-2022 20:02-0500 Heart rate 75 /min [facility] 10-05-2022 20:02-0500 Respiratory rate 16 /min [facility] 10-05-2022 16:49-0500 Diastolic blood pressure 82 mm[Hg] [facility] 10-05-2022 16:49-0500 Systolic blood pressure 125 mm[Hg] [facility] 10-05-2022 16:48-0500 Body temperature 97.9 [degF] [facility] 10-05-2022 16:48-0500 SaO2% (BldA) [Mass fraction] 98 % [facility] 09-08-2022 10:24-0500 Diastolic blood pressure 71 mm[Hg] Aileen Ellis DO Work Phone: [facility] 09-08-2022 10:24-0500 Systolic blood pressure 129 mm[Hg] Aileen Giordano DO Work Phone: [facility] 09-08-2022 10:22-0500 Body temperature 97.81 [degF] Aileen Ellis DO Work Phone: [facility] 09-08-2022 10:22-0500 Heart rate 84 /min Aileen Giordano DO Work Phone: [facility] 09-08-2022 10:22-0500 Respiratory rate 18 /min Aileen Giordano DO Work Phone: [facility] 09-08-2022 10:22-0500 SaO2% (BldA) [Mass fraction] 94 % Aileen Giordano DO Work Phone: [facility] Encounters Encounter Date Encounter Type Care Provider Facility Start: 01-06-2023 End: 01-06-2023 Emergency department patient visit [facility] Start: 01-06-2023 End: 01-06-2023 Emergency department patient visit [facility] DO Work Phone: [facility] Comment on above: Diarrhea, unspecifie d type (Primary Dx) Start: 10-14-2022 End: 10-14-2022 Emergency department patient visit [facility] Start: 10-05-2022 End: 10-05-2022 Emergency department patient visit [facility] Start: 10-05-2022 End: 10-05-2022 Emergency department patient visit [facility] ED Comment on above: Viral illness (Prima ry Dx) Start: 09-08-2022 End: 09-08-2022 Emergency department patient visit [facility] Start: 09-08-2022 End: 09-08-2022 Emergency department patient visit Aileen Giordano DO Work Phone: [facility] ED Comment on above: Penile discharge (Pr imary Dx) Start: 09-07-2022 End: 09-07-2022 Emergency department patient visit [facility] Procedures Date Procedure Procedure Detail [...] 05-29-2022 Influenza vaccination Flu vaccine (# 1) [facility] Start: 2010 DTaP/Tdap/Td vaccine (1 - Tdap) DTaP/Tdap/Td vaccine (1 - Tdap) [facility] Start: 1991 COVID-19 Vaccine (#1) COVID-19 Vacci ne (#1) [facility] End: 09-08-2022 C.trachomatis N.gonorrhoeae DNA, Urine [employer] Phone: Comment on above: One Time for 1 Occur rences starting 09/08/2022 until 09/08/2022 Payers Date Payer Category Payer Private Health Insurance [id number] 1991 Unknown [id number] 1991 Unknown [id number] 1991 Unknown [id number] Social History Date Type Detail Facility Start: 11-16-2021 [facility] History of tobacco use Cigarette Smoker [facility] [employer] Phone: Start: 11-16-2021 End: 10-05-2022 Cigarettes smoked current (pack per day) - Reported 0.5 [employer] Phone: Start: 11-16-2021 End: 10-05-2022 Tobacco use and exposure Smokeless tobacco non-user [employer] Phone: Start: 1990 Sex Assigned At Not on file [facility] [employer] Phone: Start: 08-29-2022 End: 01-06-2023 Exposure to SARS-CoV-2 (event) Not sure [facility] Start: 10-05-2022 Tobacco smoking stat us NHIS Ex-smoker [facility] History of tobacco use Current smoker [facility] Work Phone: Hospital Discharge instructions 01-06-2023 Discharge [...] us to take care of you at [facility]. In the next few days you may receive a survey by mail or e-mail asking about the care you received during this visit. Please complete this if you are able, as this feedback helps us provide the best care possible. The following attachments cannot be sent through Care Everywhere.Diarrhea ([place])documented in this encounter [facility] Work Phone: Hospital Discharge instructions 09-08-2022 Discharge InstructionsAttachments Note Date & Type Note Facility 09-08-2022 Hospital Discharg e instructions Aileen Giordano DO - 09/08/2022 11:01 AM EST Follow up results on mychart, Take antibiotics until completed, return to Er for worsening symptoms. The following attachments cannot be sent through Care Everywhere.STI ([place])documented in this encounter [facility] [facility] Phone: Evaluation note Note Date & Type Note Facility Evaluation note Diagnosis Penile discharge- Primary Urethral discharge documented in this encounter [employer] Phone: Evaluation note Note Date & Type Note Facility Evaluation note Diagnosis Viral illness- Primary Unspecified viral infection, in conditions classified elsewhere and of unspecified site documented in this encounter [facility] [employer] Phone: Evaluation note Note Date & Type Note Facility Evaluation note Diagnosis Diarrhea, unspecified type- Primary documented in this encounter [facility] Phone: Hospital Discharge instructions Attachments Note Date & Type Note Facility Hospital Discharge instructions The following attachments cannot be sent through Care Everywhere.Viral Infections (Uzbek)documented in this encounter [facility] [employer] [facility] Phone: Summary Purpose Family History No Family [...] BE BASED ON THE PRIMARY CLINICAL RECORDS. [employer] [facility]. provides no warranty or guarantee of the accuracy or completeness of information in this document.
--- NOTE | 2025-08-07 14:58 | XR_ITS ---
[facility] [place] [id number] Patient Name: MAYLIN BOBO MRN: [id number] date: 1990 Sex: M Assigned Patient Location: ED.MAIN Current Patient Location: ED.MAIN Accession/Order Number: [id number] Exam Date: 08/07/2025 15:35 Report Date: 08/07/2025 16:13 At the request of: BEKA PATIÑO MD Procedure: XR lumbar spine 2-3V Views of the lumbar spine INDICATION: Atraumatic pain FINDINGS: Lumbar vertebral heights and alignment maintained. Lucency projecting over the pars at L5 suggestive of pars articularis defects otherwise negative acute fracture malalignment. 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 Negative acute osseous abnormalities. Impression dictated by: Wilfredo Valle M.D. 08/07/2025 4:13 PM Dictation Location: [place] [address] Electronically authenticated by: [id number] Y Date: 08/07/2025 16:13
--- NOTE | 2025-08-07 15:07 | ED_ITS ---
HPI HPI - General Adult General Chief complaint: Back Pain/Injury Stated complaint: BACK PAIN Time Seen by Provider: 08/07/25 14:51 Source: patient Mode of arrival: ambulance Limitations: no limitations History of Present Illness HPI narrative: 35-year-old male presented to the emergency department for lower back pain. He woke up this morning with this pain. There was no associated injury. It does not seem to radiate and he has no dysuria or hematuria. It is worse in certain positions. The pain is moderate. Related Data Previous Rx's ?Medication ?Instructions ?Recorded ibuprofen 800 mg tablet 800 mg PO Q8H PRN pain #20 t abs 08/07/25 methocarbamol 750 mg tablet 750 mg PO Q6H PRN pain #20 tabs 08/07/25 Allergies Allergy/AdvReac Type Severity Reaction Status Date / Time No Known Drug Allergies Allergy Verified 02/10/25 19:51 Opioid HPI Opioid Management Most Recent Opioid Data: Last Pain Scale 10 Today, 15:07 Review of Systems ROS Narrative A ten point review of systems is negative except as noted above. PFSH PFSH Social History Little interest or pleasure in doing things: not at all Feeling down, depressed, or hopeless: not at all Exam Narrative Exam Narrative: Nurses note and vital signs reviewed and patient is not hypoxic. General:The patient appears in no apparent distress.Patient is laying on his side. Skin:Warm, dry, no pallor noted.There is no rash noted. Head:Normocephalic, atraumatic Eye: Normal conjunctiva, no drainage Ears, Nose, Mouth, and Throat: oral mucosa is moist. Nares patent. Cardiovascular:Regular Rate and Rhythm Respiratory:Patient is in no distress, no accessory muscle use, lungs are clear to auscultation, no wheezing, rales or rhonchi Back: No bruise rash or abrasion or palpable tenderness. GI: Soft and nontender Musculoskeletal: The patient has no evidence of calf tenderness, no pitting edema, symmetrical pulses noted bilaterally Neurological: Awake and alert. Motor strength intact in his lower extremities Psychiatric:Cooperative Constitutional Vital Signs, click to edit/add: Last Vital Signs Temp 97.6 F 08/07/25 14:34 Pulse 80 08/07/25 14:34 Resp 18 08/07/25 14:34 BP 165/76 H 08/07/25 14:34 Pulse Ox 100 08/07/25 15:08 O2 Del Method Room Air 08/07/25 15:08 Course Vital Signs Vital signs: Vital Signs Temperature 97.6 F 08/07/25 14:34 Pulse Rate 80 08/07/25 14:34 Respiratory Rate 18 08/07/25 14:34 Blood Pressure 165/76 H 08/07/25 14:34 Pulse Oximetry 99 08/07/25 14:34 Temperature 97.6 F 08/07/25 14:34 Pulse Rate 80 08/07/25 14:34 Respiratory Rate 18 08/07/25 14:34 Blood Pressure 165/76 H 08/07/25 14:34 Pulse Oximetry 100 08/07/25 15:08 Oxygen Delivery Method Room Air 08/07/25 15:08 Medical Decision Making MDM Narrative Medical decision making narrative: Spondylolysis is noted by the radiologist at L5 on his x-ray. He is referred to orthopedics and was prescribed medication. Treatment diagnosis and follow-up were discussed with the patient. Differential Diagnosis Differential Diagnosis: Compression fracture, muscle strain Imaging Data Lumbar x-ray: Radiologist's impression: ITS Impressions Lumbar Spine X-Ray 08/07/25 14:58 IMPRESSION: Suspected pars defects L5. Negative acute osseous abnormalities. Impression dictated by: Wilfredo Valle M.D. 08/07/2025 4:13 PM Dictation Location: [place] [address] Electronically authenticated by: [id number] Y Date: 08/07/2025 16:13 Discharge Plan Discharge Chief Complaint: Back Pain/Injury Clinical Impression: Spondylolysis of lumbar region Patient Disposition: Home, Self-Care Time of Disposition Decision: 16:21 Condition: Good Mode of Transportation: Private Vehicle Prescriptions / Home Meds: New ibuprofen 800 mg tablet 800 mg PO Q8H PRN (Reason: pain) Qty: 20 0RF methocarbamol 750 mg tablet 750 mg PO Q6H PRN (Reason: pain) Qty: 20 0RF Print Language: Solomon Islander Instructions: Back Pain (ED) Referrals: Ahmet Cai MD [Primary Care Provider, Family Practice] - 1 week Hiram Frey DO [Physician, Orthopedics] - 1 week
[2025-08-07 15:08] VITALS: O2SAT 100
[2025-08-07] MEDS: KETOROLAC TROMETHAMINE 60 MG/2 ML VIAL IM (15:16)
[2025-08-07] MEDS: ACETAMINOPHEN 300 MG/ 30 MG CODEINE TABLET 1 TAB PO (16:43)
--- NOTE | 2025-08-07 17:18 | CT_ITS ---
[address] [address] Patient Name: MAYLIN BOBO MRN: [id number] date: 1990 Sex: M Assigned Patient Location: ER Current Patient Location: ER Accession/Order Number: [id number] Exam Date: 08/07/2025 17:33 Report Date: 08/07/2025 18:02 At the request of: BEKA PATIÑO MD Procedure: CT lumbar spine wo con CT lumbar spine wo con 08/07/2025 5:40 PM History:Low back pain, abnormal x-ray TECHNIQUE: Multi detector CT axial slices of the lumbar spine were obtained without IV contrast. Volumetric acquisition sagittal, coronal, and 3-D reconstructions were performed and reviewed on a separate workstation. CT was performed with one or more of the following dose reduction techniques: Automated exposure control, adjustment of the mA and/or kV according to patient size, or use of iterative reconstruction technique. COMPARISON: X-ray lumbar spine 08/07/2025 FINDINGS: Suspect lumbarization of S1. Otherwise 6 lumbar type vertebral bodies. Pars defects at S1. Rudimentary disc at S1-S2. 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 Disc bulge at L5-S1 with mild to moderate right subarticular recess narrowing and moderate neural foraminal narrowing. Otherwise minimal disc bulge of L4-5. Otherwise the lumbar vertebral heights maintained. No fracture malalignment. Punctate right lower pole calculi nonobstructive. CT/CT lumbar spine wo con IMPRESSION: Variant anatomy with suspected transitional segment lumbosacral junction with lumbarization of S1.. 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 Moderate degenerative changes L5-S1 with moderate foraminal narrowing and right sided subarticular recess narrowing. Impression dictated by: Wilfredo Valle M.D. 08/07/2025 6:02 PM Dictation Location: [place] [address] Electronically authenticated by: [id number] Y Date: 08/07/2025 18:02
[2025-08-07 17:19] VITALS: BP 132/81; PULSE 73; O2SAT 100
[2025-08-07] MEDS: MORPHINE SULFATE 4 MG/ML VIAL 10 MG IM (17:28)
[2025-08-07 18:39] VITALS: BP 150/79; PULSE 70; O2SAT 100
== END 2025-08-07 18:41 | disposition home or self-care (01) ==
PROVIDERS: Emergency Provider Emergency Medicine; PCP Family Medicine
DX: M43.06 Spondylolysis, lumbar region (principal)
CPT/HCPCS: 72100; 72131; 76376; 96372; 99285; J1885; J2270